=== PATIENT | female | born 1955 | race Caucasian/White ===

== ENCOUNTER 2021-07-07 07:49 | Outpatient (REF) | payer MEDICARE, OTHER, SELFPAY ==
[2021-07-07 11:23] LABS: Appearance Urine CLOUDY; Color Urine YELLOW; Glucose Urine UA NEG (NEG); Leukocyte Esterase Urine NEG (NEG); Nitrite Urine NEG (NEG); Specific Gravity - Urine >= 1.030 (1.005-1.025); Urine Blood 1+ (NEG); Urine Ketones NEG (NEG); Urine Protein NEG (NEG-TRACE)
[2021-07-07 11:24] LABS: Hematocrit 38.7 % (37-47); Hemoglobin 12.8 g/dl (12.0-16.0); Mean Corpuscular HGB Conc 33.1 g/dl (31.0-35.0); Mean Corpuscular Volume 90.6 fL (80-98); Mean Platelet Volume 10.9 fL (9.4-12.3); Platelet Count 220 X10*3/uL (160-400); Red Blood Count 4.27 X10*6/uL (4.20-5.50); Red Cell Distribution Width 13.1 % (11.0-16.0); White Blood Count 1.4 X10*3/uL (4.8-10.8)
[2021-07-07 11:37] LABS: Amorphous Sediment Urine 4+ /LPF; Mucus Urine 2+ /LPF; WBC Urine 0 /HPF (0-4)
[2021-07-07 11:47] LABS: Estimated Average Glucose 105 mg/dL; Hemoglobin A1c % 5.3 %
[2021-07-07 11:55] LABS: Alanine Aminotransferase 10 U/L (0-31); Albumin Level 4.2 g/dL (3.5-5.0); Alkaline Phosphatase 77 U/L (39-117); Anion Gap 9 (12-20); Aspartate Amino Transferase 13 U/L (5-31); Bilirubin Total 0.5 mg/dL (0.0-1.0); Blood Urea Nitrogen 14 mg/dL (9-16); Calcium 9.4 mg/dL (8.4-10.2); Carbon Dioxide 26 mmol/L (22-29); Chloride 110 mmol/L (96-108); Cholesterol 148 mg/dL; Estimated Glomerular Filt Rate > 60; Glucose Fasting 106 mg/dL (60-99); HDL Cholesterol 43 mg/dL; LDL Cholesterol Calculated 88 mg/dl; Potassium 3.9 mmol/L (3.3-5.1); Sodium 141 mmol/L (135-145); Total Protein 7.3 g/dL (6.5-8.0); Triglycerides 85 mg/dL
[2021-07-07 12:00] LABS: TSH reflex Free T4 2.71 uIU/mL (0.32-4.0)
[2021-07-07 12:05] LABS: Creatinine Urine 135.11 mg/dL; Microalbum/Creatinine Ratio Ur 10.3 ug/mg cr
== END 2021-07-07 07:50 | disposition home or self-care (01) ==
LOC: HO.HMGCLDS 07:49
PROVIDERS: PCP Internal Medicine; Visit Provider Internal Medicine
DX: Z00.00 Encounter for general adult medical examination without abnormal findings (principal)
CPT/HCPCS: 36415; 80053; 80061; 81001; 82043; 83036; 84443; 85027

== ENCOUNTER → 2021-10-13 13:32 | Outpatient (BNVA) | payer MEDICARE, OTHER, SELFPAY | PROVIDERS: PCP Internal Medicine; Referring Provider Internal Medicine; Visit Provider Nurse Practitioner Family | DX: Z12.11 Encounter for screening for malignant neoplasm of colon (principal); K57.90 Diverticulosis of intestine, part unspecified, without perforation or abscess without bleeding | CPT/HCPCS: 99202 ==

== ENCOUNTER 2022-07-07 07:29 | Outpatient (REF) | payer MEDICARE, OTHER, SELFPAY ==
[2022-07-07 11:22] LABS: Appearance Urine Turbid; Color Urine Yellow; Glucose Urine UA Negative (Negative); Leukocyte Esterase Urine Negative (Negative); Nitrite Urine Negative (Negative); UMIC TRIGGER UA YES; Urine Blood Trace (Negative); Urine Ketones Negative (Negative); Urine Protein Negative (Neg-Trace)
[2022-07-07 11:35] LABS: Bacteria Urine None Seen (None Seen); Basophils Percent Auto 0.5 % (0-2); Calcium Oxalate Crystals Urine Present; Eosinophils Percent Auto 0.5 % (0-4); Hematocrit 39.6 % (37.0-47.0); Hemoglobin 12.9 g/dl (12.0-16.0); Hyaline Casts Urine 0-2 /LPF (0-2); Lymphocytes Absolute Auto 0.7 X10*3/uL (1.2-4.9); MANUAL DIFF FLAG SCAN; Mean Corpuscular HGB Conc 32.6 g/dl (31.0-35.0); Mean Corpuscular Hemoglobin 29.1 pg (27.0-33.0); Mean Corpuscular Volume 89.2 fL (80.0-98.0); Mean Platelet Volume 10.5 fL (9.4-12.3); Monocytes Absolute Auto 0.3 X10*3/uL (0.1-1.2); Platelet Count 214 X10*3/uL (160-400); RBC Urine 0-2 /HPF (0-2); Red Blood Count 4.44 X10*6/uL (4.20-5.50); Red Cell Distribution Width 13.3 % (11.0-16.0); SCAN SMEAR FLAG 1; Squamous Epithelial Cell Urine 0-2 /HPF (0-2); WBC Urine 0-5 /HPF (0-5)
[2022-07-07 12:07] LABS: SLIDE REVIEW VERIFIED
== END 2022-07-07 07:30 | disposition home or self-care (01) ==
LOC: HO.HMGCLDS 07:29
PROVIDERS: PCP Internal Medicine; Visit Provider Internal Medicine
DX: Z00.00 Encounter for general adult medical examination without abnormal findings (principal); D70.9 Neutropenia, unspecified
CPT/HCPCS: 36415; 81001; 85025

== ENCOUNTER 2022-10-19 09:35 | Outpatient (REF) | payer MEDICARE, OTHER, SELFPAY ==
[2022-10-19 11:23] LABS: Estimated Average Glucose 114 mg/dL; Hemoglobin A1c % 5.6 %
[2022-10-19 11:49] LABS: Alanine Aminotransferase 10 U/L (0-31); Albumin Level 4.1 g/dL (3.5-5.0); Alkaline Phosphatase 82 U/L (39-117); Anion Gap 8 (12-20); Aspartate Amino Transferase 14 U/L (5-31); Bilirubin Total 0.5 mg/dL (0.0-1.0); Blood Urea Nitrogen 13 mg/dL (9-16); Calcium 9.4 mg/dL (8.4-10.2); Carbon Dioxide 29 mmol/L (22-29); Chloride 108 mmol/L (96-108); Estimated Glomerular Filt Rate > 60; Glucose Fasting 102 mg/dL (60-99); Potassium 3.8 mmol/L (3.3-5.1); Sodium 141 mmol/L (135-145); Total Protein 7.4 g/dL (6.5-8.0)
[2022-10-19 12:06] LABS: TSH reflex Free T4 3.03 uIU/mL (0.32-4.0)
== END 2022-10-19 09:36 | disposition home or self-care (01) ==
LOC: HO.HMGCLDS 09:35
PROVIDERS: PCP Internal Medicine; Visit Provider Internal Medicine
DX: Z00.00 Encounter for general adult medical examination without abnormal findings (principal); D70.9 Neutropenia, unspecified; E78.5 Hyperlipidemia, unspecified; R73.9 Hyperglycemia, unspecified
CPT/HCPCS: 36415; 80053; 83036; 84443

== ENCOUNTER 2023-02-12 08:38 | Outpatient (REF) | payer MEDICARE, OTHER, SELFPAY ==
--- NOTE | ~2023-02-12 | MM_ITS ---
EXAMINATION: BONE DENSITOMETRY CLINICAL INDICATION: Menopause. COMPARISON: Baseline BD dated 08/04/2019. TECHNIQUE: Using a [employer] DXA System (software version: 13.1) manufactured by [employer], dual-energy x-ray absorptiometry was performed of the lumbar spine and left hip. The images are of good technical quality. Summary results are attached. FINDINGS: AP SPINE L1-L4: Current: BMD 1.029 g/cm2, Z-score 0.1, T-score -1.3, osteopenia, 1.0% increase from baseline (<5% change is not significant). Baseline: BMD 1.019 g/cm2. LEFT FEMUR, NECK: Current: BMD 0.835 g/cm2, Z-score 0.0, T-score -1.5, osteopenia. Baseline: BMD 0.814 g/cm2. LEFT FEMUR, TOTAL: Current: BMD 0.777 g/cm2, Z-score -0.6, T-score -1.8, osteopenia, 9.3% decrease from baseline (<5% change is not significant). Baseline: BMD 0.857 g/cm2. IDENTIFIED RISK FACTORS: Menopause, history of fracture (adult). HISTORY OF FRACTURE: Elbow. MEDICATIONS: None listed. MM/XR DEXA axial skeleton IMPRESSION: 1. DIAGNOSIS: Osteopenia based on the lowest T-score value of -1.8 in the total femur applying World Health Organization criteria. 2. 10-YEAR FRACTURE RISK PREDICTION, FRAX: Major osteoporotic fracture (clinical spine, forearm, hip or shoulder) 14.9%. Hip fracture 1.8%. 3. Treatment Recommendations: NOF guidelines recommend consideration for treatment in postmenopausal women and men age 50 and older presenting with the following: -A hip or vertebral (clinical or morphometric) fracture. -T-score less than or equal to -2.5 at the femoral neck or spine after appropriate evaluation to exclude secondary causes. -Low bone mass at the hip or spine and a 10-year fracture probability by FRAX of greater than or equal to 3% for hip fracture or greater than or equal to 20% for major osteoporotic fracture based on the [place] adapted WHO algorithm. 4. Other Recommendations: All treatment decisions require clinical judgment and consideration of individual patient factors, including patient preferences, comorbidities, previous drug use, risk factors not captured in the FRAX model (e.g. frailty, falls, vitamin D deficiency, increased bone turnover, interval significant decline in bone density) and possible under or overestimation of fracture risk by FRAX. Additional medical evaluation for secondary cause of low bone mineral density may be appropriate. FUTURE SCAN RECOMMENDATION: People with diagnosed cases of osteoporosis or at high risk for fracture should have regular bone mineral density tests. For patients eligible for Medicare, routine testing is allowed once every 2 years. The testing frequency can be increased to one year for patients who have rapidly progressing disease, those who are receiving or discontinuing medical therapy to restore bone mass, or have additional risk factors.
== END 2023-02-12 08:39 | disposition home or self-care (01) ==
LOC: HO.MAMMO 08:38
PROVIDERS: Visit Provider Internal Medicine
DX: Z13.820 Encounter for screening for osteoporosis (principal); Z78.0 Asymptomatic menopausal state
CPT/HCPCS: 77080

== ENCOUNTER 2023-03-19 07:00 | Outpatient (RCR) | payer MEDICARE, OTHER, SELFPAY ==
--- NOTE | 2023-02-19 09:14 | MHC.PT.EP ---
[facility] [place] Office [place] Office [place] Office [address] He Brewer [address] [phone] F: [phone] F: [phone] F: [phone] F: [phone] Physical Therapy Plan of Care Date of Evaluation: Date of Surgery: Diagnosis: This is a 68 yo female presenting to skilled PT with a script for pain in R knee and hip. Assessment: This is a 68 yo female presenting to skilled PT with a script for pain in R knee. Patient reporting ongoing stiffness and discomfort starting about 4-5 years ago. She went to PT and did HEP for a while which was helping however she stopped and stiffness started to return (the last time she had PT was 2018). She also reports that she has gained weight and this has not been helping with general achiness and stiffness. L hip is the worst, located low back, mostly described as stiff. R knee is worse but has symptoms B and are located at the patella tendons. Stiffness increases after sitting and then transferring and this is occurring daily. She wants to work on reducing stiffness in general. Assessment reveals pain that ranges from 1-3/10. Patient demos decreased BLE gross ROM, strength of gluts, impaired gait pattern and functional mobility with transfers, TTP at B patella tendons and decreased joint mobility at R knee and L hip. She has many areas of joint stiffness and pain but we will be focusing on the LE for a general stretching and functional HEP for her to continue on her own. Based on functional limitations, impaired QOL and pain tolerance patient is a good candidate for skilled PT 2x/wk for 4wks but would like to come in 1x/wk. Frequency and Duration: The patient will be seen 2x/wk for 4wks Short Term Goals: I in HEP in 2 wks Improve ROM by at least 10 degs in 2 wks Demo proper quad set without increase in pain or cues from PT in 2wks Alf Goals: Improve hip MMT by at least 1 grade in 4wks Improve LEFs by at least 10 points in 4wks Demo proper squat and lift techniques without pain in 4wks Report subjective improvement in QOL of 50% in 4wks Treatment Plan: Modalities to reduce pain, spasms and effusion. Manual therapy to restore motion and function. Therapeutic exercise to improve strength and flexibility. Neuromuscular re-education for posture and balance. Therapeutic activities to return to functional activities of daily living. Electronically signed by: Aylin Singh PT Please sign and return to therapist. Thank you for your referral.
--- NOTE | 2023-04-21 13:01 | MHC.PT.DC ---
[facility] [place] Office [place] Office [place] Office [address] He Brewer [address] [phone] F: [phone] F: [phone] F: [phone] F: [phone] Physical Therapy Discharge Report Diagnosis: This is a 68 yo female presenting to skilled PT with a script for pain in R knee and hip. Date of Surgery: Date of Evaluation: 02/19/23 Date of Discharge: 04/21/23 Treatments to Date: 4 Cancellations to Date: 0 No Shows to Date: 0 Discharge Status: Independent with HEP Patient Elected to Stop Discharge Summary: Per last tx note over 30 days ago reporting that she hadn't done HEP this past week and is feeling stiff. Pt tolerated ther-ex well, with difficulty of performing KTC on L, offered pt modification to reduce LLE range and she declined as she doesn't want her knee to hurt later. Pt instructed in TrA activation, pt with some difficulty performing with verbal/tactile cues and demonstration. Introduced seated HS stretch this date which pt responded well to. Patient did not return for further tx, dc'd after 30 days. Electronically signed by: Aylin Singh, PT Please sign and return to therapist. Thank you for your referral.
== END 2023-04-21 13:01 | disposition home or self-care (01) ==
LOC: HO.PTCHIC 07:00
PROVIDERS: PCP Internal Medicine; Visit Provider Internal Medicine
DX: M25.561 Pain in right knee (principal)
CPT/HCPCS: 97110; 97162

== ENCOUNTER 2023-04-22 12:36 | Outpatient (AMB) | payer MEDICARE, OTHER, SELFPAY ==
--- NOTE | 2023-04-22 12:40 | MHC.PC.OV ---
Vital Signs 04/22/23 12:49 Height 5 ft 1 in Weight 163 lb BMI 30.8 BP 120/66 Blood Pressure Location Lt brachial Position Sitting Pulse 65 Pulse Source Pulse Oximeter Pulse Oximetry (%) 96 Oxygen Delivery Method Room Air Intake Visit Reasons: Discuss CT Scan from [facility] Urology Intake Note: pT is here today for a follow up visit on Ct scan results that were ordered by [facility]. Pt states that the CT scan showed nudule on her lung and she would like to see Liquid Flavor Compounder. Pt also states that she has been having pain in her L heel when she is walking. Allergies penicillin V Allergy (Mild, Unverified 04/22/23 12:51) rash Sulfa (Sulfonamide Antibiotics) Allergy (Mild, Verified 04/22/23 12:51) rash sulfacetamide Allergy (Mild, Verified 04/22/23 12:51) unknown Medication List - Last Reconciled 04/22/23 by Evelyn Rubio MD bisacodyl (Dulcolax (bisacodyl)) 10 mg (2 x 5 mg) PO ONCE 1 day lorazepam 0.5 mg PO DAILY PRN polyethylene glycol 3350 (Miralax) 238 grams PO ONCE pravastatin 20 mg PO BEDTIME Tobacco use date assessed: 04/22/23 Dental Screening Dental Screen Date: 04/22/23 Did you have a dental visit in the last 12 months?: Yes Did you have a dental problem in the last 6 months where you did not have access to dental care?: No Was dental information given to patient?: Patient has dentist HPI Discuss CT Scan from [facility] Urology HPI Details Pt presents to discuss the results of the CT of the abdomen which showed 0.9 x 0.6 cm ground-glass nodule in the basal left lower lung. Patient denies tobacco use by used to smoke pot on was young. She complains of left heel pain worse when walking for the last 2 weeks. Patient denies any injury. [facility] Medical History (Updated 04/22/23 @ 13:35 by Evelyn Rubio MD) Annual physical exam Anxiety Atherosclerosis of both carotid arteries Hyperlipidemia Mammogram normal Nephrolithiasis Neutropenia Normal Pap smear Parotitis Surgical History H/O colonoscopy Family History Father Hypertension Mother No problems noted. Social History Housing: House Patient Tobacco Use Status: Never used Tobacco e-Cigarette/Vaping Use: Never Used Current occupational status: employed Cognitive needs: No Hearing needs: No Vision needs: Yes Questionnaire Thrive Questionnaire Date Thrive assessed: 10/19/22 RADHA-7 AMB Questionnaire RADHA-7 Date RADHA - 7 assessed: 10/19/22 Source: Developed by Drs. Michael Figueroa, Holly Azevedo, Jerrod Paul and colleagues, with an educational pascale from [employer]. Review of Systems Const All systems reviewed & are unremarkable except as noted in HPI and below Reports no additional complaints Eyes Reports no additional complaints ENT Reports no additional complaints Card Reports no additional complaints Resp Reports no additional complaints GI Reports no additional complaints Reports no additional complaints Physical exam (Primary Care) Vital Signs: Last Vital Signs Pulse 65 04/22/23 12:49 BP 120/66 04/22/23 12:49 Pulse Ox 96 04/22/23 12:49 Oxygen Delivery Method Room Air 04/22/23 12:49 BMI result Body Mass Index 30.8 Tobacco/Smoking Status: Tobacco use Status Tobacco use date assessed 04/22/23 04/22/23 12:54 Patient Tobacco Use Status Never used Tobacco 04/22/23 12:54 e-Cigarette/Vaping Use Never Used 04/22/23 12:41 Thrive Assessment: Date of Thrive Assessment Date Thrive assessed 10/19/22 04/22/23 12:41 Const General: no acute distress HENMT Ears: hearing grossly normal bilaterally Resp Effort & Inspection: normal respiratory effort Auscultation: clear to auscultation bilaterally Cardio Heart sounds: S1 normal heart sound present and S2 normal heart sound present Extrem Other: Reproducible tenderness at the left heel, no soft tissue swelling General: Yes no clubbing, cyanosis or edema Assessment and Plan Assessment & Plan (1) Pulmonary nodule less than 1 cm in diameter with low risk for malignant neoplasm: Comment: 0.9 x 0.6 cm, ground-glass left lower lobe, 04/25 Code(s): R91.1 - Solitary pulmonary nodule; Z91.89 - Other specified personal risk factors, not elsewhere classified Plan: Obtain CT of the chest to evaluate (2) Plantar fasciitis of left foot: Code(s): M72.2 - Plantar fascial fibromatosis Plan: Patient was given stretching exercises and meloxicam. Supportive care discussed with the patient Orders: Orders CT chest wo con - High Res Today R91.1 - Solitary pulmonary nodule, Z91.89 - Other specified personal risk factors, not elsewhere classified Medications: New meloxicam 15 mg PO DAILY 10 tabs 0RF Coding Level of Care Code Est Pt Level 3 (81005) Diagnoses Pulmonary nodule less than 1 cm in diameter with low risk for malignant neoplasm R91.1; Z91.89 Plantar fasciitis of left foot M72.2
[2023-04-22 12:49] VITALS: BP 120/66; PULSE 65; O2SAT 96; BMI 30.8
== END 2023-04-22 13:36 | disposition home or self-care (01) ==
PROVIDERS: PCP Internal Medicine; Visit Provider Internal Medicine
DX: R91.1 Solitary pulmonary nodule (principal); Z91.89 Other specified personal risk factors, not elsewhere classified; M72.2 Plantar fascial fibromatosis
CPT/HCPCS: 99213

== ENCOUNTER 2023-05-10 10:14 | Day surgery (SDC) | payer MEDICARE, OTHER, SELFPAY ==
[2023-03-11 11:29] VITALS: BMI 31.6
--- NOTE | 2023-05-10 10:23 | HO.ANESPROP2 ---
[facility] Active Problems Active Problems: All Active Problems (Updated 04/22/23 @ 13:35 by Evelyn Rubio MD) Plantar fasciitis of left foot (Acute) Pulmonary nodule less than 1 cm in diameter with low risk for malignant neoplasm (Acute) Postmenopausal (Acute) Right hip pain (Acute) Right knee pain (Acute) Vertigo (Acute) Hyperglycemia (Acute) Upper respiratory tract infection (Acute) Neutropenia (Acute) Hyperlipidemia (Acute) Normal Pap smear (Acute) Mammogram normal (Acute) Annual physical exam (Acute) Nephrolithiasis (Acute) Past Medical History Medical History Annual physical exam Anxiety Atherosclerosis of both carotid arteries Hyperlipidemia Mammogram normal Nephrolithiasis Neutropenia Normal Pap smear Parotitis Family History Family History Father Hypertension Mother No problems noted. Surgical History Surgical History H/O colonoscopy History of Problems with Anesthesia: No Social History Social History Housing: House Patient Tobacco Use Status: Never used Tobacco e-Cigarette/Vaping Use: Never Used Advance Directives: No Advance Directives Information Provided: Yes Current occupational status: employed Cognitive needs: No Hearing needs: No Vision needs: Yes Meds Allergies Allergy/AdvReac Type Severity Reaction Status Date / Time penicillin V Allergy Mild rash Unverified 04/22/23 12:51 Sulfa (Sulfonamide Allergy Mild rash Verified 04/22/23 12:51 Antibiotics) sulfacetamide Allergy Mild unknown Verified 04/22/23 12:51 Active Medications: Current Medications Lactated Ringer's (Lr) 1,000 mls @ 100 mls/hr IVCONT .Q10H ELMA Exam Exam Date and Time: May 10, 2023 1023 Height,Weight and Vital Signs: Height 5 ft 1 in Weight 75.75 kg Airway Mallampati Class: II TM Dist: >3cm Neck ROM: Full Loose/Missing/Broken Teeth: No Heart: RRR Lungs: CTA Assessment and Plan Assessment Anesthesia Assessment: Anesthesia Plan Discussed and Chart Reviewed Final Anesthetic Review History of Problems with Anesthesia: No NPO: Yes ASA Class: II Final Preanesthetic Review: Meds/Allgs Chart Reviewed, Consent Obtained/Reviewed and Anes Risks/Benef Reviewed Patient Risk: Low Procedure Risk: Low Anesthetic Plan Anesthetic Plan: MAC: Disposition: Standard PACU
[2023-05-10 10:46] VITALS: BP 125/72; PULSE 81; RESP 16; TEMP 36.9; O2SAT 95; BMI 29.3
--- NOTE | 2023-05-10 11:07 | P.HPSUR_ITS ---
Pre-Procedural Eval Section A Date of Service: 05/10/23 The patient is an INPATIENT: No The History & Physical has been completed within 30 days and I have reviewed it.: No Section B Chief Complaint: Colon cancer screening Relevant Family History (Specify if Yes): No Relevant Social History: None Present Medications: see Short Stay Collaborative assessment Medical History: Significant History (Anxiety Atherosclerosis of both carotid arteries Hyperlipidemia Mammogram normal Nephrolithiasis Neutropenia Normal Pap smear Parotitis) History of Previous Operations: Relevant previous surgery/procedure and date(s) (History of colonoscopy) Allergies: Allergies Allergy/AdvReac Type Severity Reaction Status Date / Time penicillin V Allergy Mild rash Unverified 04/22/23 12:51 Sulfa (Sulfonamide Allergy Mild rash Verified 04/22/23 12:51 Antibiotics) sulfacetamide Allergy Mild unknown Verified 04/22/23 12:51 Review of Systems Sugical H&P ROS: Negative: Constitution, Cardiovascular, Respiratory and [place] rointestinal Exam Surgical H&P Exam: Normal: Heart, Normal: Lungs, Normal: Extremities and Normal: Abdomen Plan Diagnosis/Plan: Unchanged I have reviewed the history and physical and performed a pertinent physical examination on my patient. No changes have occurred unless specified. Time Spent With Patient Time: Total time managing care of this patient today ____ minutes.
--- NOTE | 2023-05-10 11:15 | P.OP_ITS ---
Operative Note Operative Note Date of Service: 05/10/23 Narrative: COLONOSCOPY TILL CECUM WITH SNARE POLYPECTOMY, SUBMUCOSAL INJECTION AND HEMOCLIP PLACEMENT Pre-op diagnosis: Colon cancer screening (2nd colonoscopy) Post-op diagnosis:? Colon polyps, diverticulosis, hemorrhoids Endoscopist:? Dilip Ruff MD Anesthesia:?MAC Consent: Indications for the procedure and potential complications of bleeding, perforation, reaction to medications and missed diagnosis were discussed with the patient and informed consent was obtained. Instrument: Olympus PCF H 190 L variable stiffness pediatric colonoscope Monitoring: Vital signs and clinical assessment, intermittent blood pressure monitoring, continuous EKG monitoring, Pulse oximetry and Carbon Dioxide monitoring were done throughout the procedure. Patient developed bradycardia during intubation. Please see anesthesia flowsheet. Colon withdrawl time was 21 minutes. Procedure: The patient was placed in the left lateral decubitis position and pre-procedure medications were administered. After a digital rectal examination of the ano-rectum, the video colonoscope was inserted into the rectum and advanced through the colon to the cecum. The colonoscope was slowly withdrawn in a retrograde panoramic fashion and the colon mucosa was carefully examined including a retroflexed view of the rectum. Findings and interventions are described below. Procedure Difficulty: Colon was long and tortuous and there was spasm and recurrent loop formation. LLQ pressure was applied to intubate the cecum Findings: Terminal Ileum: Not evaluated Cecum: A 1.5 to 1.8 cms flat polyp - opposite the ICV. Polyp was raised with 5 cc of normal saline and removed with a hot stiff snare. Polypectomy site was closed with 1 hemoclip and marked with Chelsi ink Ascending Colon: Scattered moderate diverticulosis throughout the entire colon. Transverse Colon: Two 10-15 mm flat polyps - raised with 3-4 cc of normal saline and removed with a hot snare. Scattered moderate diverticulosis throughout the entire colon Descending Colon: Scattered moderate diverticulosis throughout the entire colon (left > right) Sigmoid Colon: Moderate diverticulosis Rectum: Normal Ano-rectum: Moderate internal hemorrhoids Colon preparation: Excellent Impression and Post Procedure Diagnosis: Colonoscopy Findings: Three medium sized polyps removed Moderate diverticulosis seen in the entire colon Moderate hemorrhoids on retroflexed exam. Plan: Await pathology results Patient has an appointment on 05/24/23 in the GI Clinic with Alanis Pastrana FNP- BC. Repeat Colonoscopy interval based on path results - in 3 years if polyps are adenomatous and 10 years if polyps are hyperplastic. Above findings were reviewed with the patient and colon polyps and diverticulosis handouts were given in the discharge area
[2023-05-10 12:15] VITALS: BP 97/42; PULSE 80; RESP 18; TEMP 36.6; O2SAT 95
[2023-05-10 12:34] VITALS: BP 136/78; PULSE 80; RESP 18; TEMP 36.1; O2SAT 99
== END 2023-05-10 13:35 | disposition home or self-care (01) ==
PROVIDERS: PCP Internal Medicine; Visit Provider Internal Medicine Gastroenterology
PROC: 0DJD8ZZ Inspection of Lower Intestinal Tract, Via Natural or Artificial Opening Endoscopic (ICD-10-PCS; CPT 45378; principal; 2023-05-10 11:50)
DX: Z12.11 Encounter for screening for malignant neoplasm of colon (principal); D12.0 Benign neoplasm of cecum; D12.3 Benign neoplasm of transverse colon; K57.30 Diverticulosis of large intestine without perforation or abscess without bleeding; K64.8 Other hemorrhoids; I65.23 Occlusion and stenosis of bilateral carotid arteries; E78.5 Hyperlipidemia, unspecified; D70.9 Neutropenia, unspecified; N20.0 Calculus of kidney; K11.20 Sialoadenitis, unspecified; Z79.899 Other long term (current) drug therapy; Z88.0 Allergy status to penicillin; Z88.2 Allergy status to sulfonamides
CPT/HCPCS: 45385; 45381; 88305; J2405

== ENCOUNTER → 2023-05-10 10:14 | Outpatient (BNV) | payer MEDICARE, OTHER, SELFPAY | PROVIDERS: PCP Internal Medicine; Visit Provider Internal Medicine Gastroenterology | DX: Z12.11 Encounter for screening for malignant neoplasm of colon (principal); K57.30 Diverticulosis of large intestine without perforation or abscess without bleeding; K64.8 Other hemorrhoids; D12.0 Benign neoplasm of cecum; D12.3 Benign neoplasm of transverse colon | CPT/HCPCS: 45381; 45385 ==

== ENCOUNTER 2023-05-12 07:42 | Outpatient (REF) | payer MEDICARE, OTHER, SELFPAY ==
--- NOTE | ~2023-05-12 | CT_ITS ---
EXAMINATION: CT CHEST WITHOUT CONTRAST CLINICAL INFORMATION: Other specified personal risk factors not elsewhere classified COMPARISON: None available. TECHNIQUE: Multidetector volumetric CT imaging of the chest was done. Axial MIP volume rendering provided. Sagittal and coronal reformatted images were obtained. This CT examination was performed using dose optimization techniques as appropriate, variously including the following: *Automated exposure control *Adjustment of mA and/or kV according to patient size (this includes techniques or standardized protocols for targeted exams where dose is matched to indication/reason for exam; i.e. extremities or head) *Use of iterative reconstruction technique DLP: 139 mGy-cm FINDINGS: LUNGS/PLEURA: Emphysematous changes. Peripheral reticular nodular opacities. Mild bronchial thickening. Multi focal groundglass foci are noted in the bilateral lung stringer may reflect atelectasis versus evolving infectious/inflammatory etiology for example in the anterolateral aspect of the right lower lobe (series 5, image 256). 4 mm nodular focus along the superolateral aspect of the lingula (series 5, image 267). Central airways are patent. No pneumothorax. No large pleural effusion. MEDIASTINUM: Heart is not enlarged. No pericardial effusion. Coronary artery calcifications are noted. Aorta is nonaneurysmal and demonstrates atherosclerotic calcifications. Main pulmonary artery is not enlarged. A few mildly prominent though nonenlarged peritracheal, precarinal and periaortic lymph nodes are demonstrated. Visualized portions of the thyroid are unremarkable. AXILLA: No lymphadenopathy. UPPER ABDOMEN: Small hiatal hernia. 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 Radiopaque material noted along the proximal transverse colon, nonspecific. OSSEOUS STRUCTURES: Multilevel degenerative changes of the thoracolumbar and lumbosacral spine. Degenerative arthropathy of the right glenohumeral joint. CT/CT chest wo IV con IMPRESSION: 1. Emphysematous changes. Peripheral reticular nodular opacities. Mild bronchial thickening. Multi focal groundglass foci are noted in the bilateral lung stringer may reflect atelectasis versus evolving infectious/inflammatory etiology for example in the anterolateral aspect of the right lower lobe. 2. 4 mm nodular focus along the superolateral aspect of the lingula. Follow-up as per Fleischner criteria. 3. Small hiatal hernia. 4. 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 5. Radiopaque material noted along the proximal transverse colon, nonspecific. Various management parameters for solitary pulmonary nodules are in the literature. According to the Fleischner Society, recommendations for pulmonary nodules are as follows: According to the UPDATED 2017 Fleischner Society recommendations, the advised follow-up imaging for solid nodules < 6 mm is: LOW RISK PATIENT: No routine follow-up. HIGH RISK PATIENT: Optional CT at 12 months.
== END 2023-05-12 07:43 | disposition home or self-care (01) ==
LOC: HO.CT 07:42
PROVIDERS: Visit Provider Internal Medicine
DX: R91.1 Solitary pulmonary nodule (principal); Z91.89 Other specified personal risk factors, not elsewhere classified
CPT/HCPCS: 71250

== ENCOUNTER 2023-06-09 10:19 | Outpatient (AMB) | payer MEDICARE, OTHER, SELFPAY ==
[2023-06-09 10:23] VITALS: BP 124/72; PULSE 75; O2SAT 95; BMI 31.0
--- NOTE | 2023-06-09 10:23 | MHC.PC.OV ---
Vital Signs 06/09/23 10:23 Height 5 ft 1 in Weight 164 lb BMI 31.0 BP 124/72 Blood Pressure Location Lt brachial Position Sitting Pulse 75 Pulse Source Pulse Oximeter Pulse Oximetry (%) 95 Oxygen Delivery Method Room Air Intake Visit Reasons: CAT-Scan F/U Intake Note: Pt is here today for a follow up visit on Ct scan. Allergies penicillin V Allergy (Mild, Unverified 06/09/23 10:27) rash Sulfa (Sulfonamide Antibiotics) Allergy (Mild, Verified 06/09/23 10:27) rash sulfacetamide Allergy (Mild, Verified 06/09/23 10:27) unknown Medication List - Last Reconciled 06/09/23 by Evelyn Rubio MD cholecalciferol (vitamin D3) 50 mcg PO DAILY lorazepam 0.5 mg PO DAILY PRN pravastatin 20 mg PO BEDTIME Tobacco use date assessed: 04/22/23 HPI CAT-Scan F/U HPI Details Pt presents to discuss chest CT report. It was consistent with emphysema, peripheral reticulonodular opacities multifocal, ground-glass foci, question atelectases versus inflammatory etiology. Pt denies cough, wheezing, fever chills night sweats weight loss PND, orthopnea. She reports KEATING when walking up the stairs not significantly changed for the last few years. Patient was never a smoker but had secondhand tobacco exposure for years while working. [facility] Medical History (Updated 06/09/23 @ 10:51 by Evelyn Rubio MD) Annual physical exam Anxiety Atherosclerosis of both carotid arteries Hyperlipidemia Mammogram normal Nephrolithiasis Neutropenia Normal Pap smear Parotitis Surgical History H/O colonoscopy Family History Father Hypertension Mother No problems noted. Social History Housing: House Patient Tobacco Use Status: Never used Tobacco e-Cigarette/Vaping Use: Never Used Current occupational status: employed Cognitive needs: No Hearing needs: No Vision needs: Yes Questionnaire Thrive Questionnaire Date Thrive assessed: 10/19/22 RADHA-7 AMB Questionnaire RADHA-7 Date RADHA - 7 assessed: 10/19/22 Source: Developed by Holly Brooke B.W. Roberto Carlos, Jerrod Paul and colleagues, with an educational pascale from [employer]. Review of Systems Const All systems reviewed & are unremarkable except as noted in HPI and below Reports no additional complaints Eyes Reports no additional complaints ENT Reports no additional complaints Card Reports no additional complaints Resp Reports no additional complaints GI Reports no additional complaints Reports no additional complaints Physical exam (Primary Care) Vital Signs: Last Vital Signs Pulse 75 06/09/23 10:23 BP 124/72 06/09/23 10:23 Pulse Ox 95 06/09/23 10:23 Oxygen Delivery Method Room Air 06/09/23 10:23 BMI result Body Mass Index 31.0 Tobacco/Smoking Status: Tobacco use Status Tobacco use date assessed 04/22/23 06/09/23 10:25 Patient Tobacco Use Status Never used Tobacco 06/09/23 10:25 e-Cigarette/Vaping Use Never Used 06/09/23 10:25 Thrive Assessment: Date of Thrive Assessment Date Thrive assessed 10/19/22 06/09/23 10:25 Const General: no acute distress HENMT Head: Yes normal to inspection Ears: hearing grossly normal bilaterally Face and sinus: Yes normal facial exam Throat: Yes posterior oropharynx normal Neck Neck: Yes supple Resp Effort & Inspection: normal respiratory effort Auscultation: diminished lung sounds Cardio Rhythm: regular rhythm Heart sounds: S1 normal heart sound present and S2 normal heart sound present GI Inspection: Yes normal to inspection Palpation (GI): Soft to palpation Percussion: Yes normal to percussion Auscultation: normal bowel sounds Assessment and Plan Assessment & Plan (1) Emphysema lung: Code(s): J43.9 - Emphysema, unspecified Plan: Obtain PFTs and refer to [facility] stitcher. Orders: Orders PFT pulmonary function test Today J43.9 - Emphysema, unspecified Referrals Pulmonary Medicine Referral J43.9 - Emphysema, unspecified Coding Level of Care Code Est Pt Level 3 (73075) Diagnoses Emphysema lung J43.9
== END 2023-06-09 12:38 | disposition home or self-care (01) ==
PROVIDERS: PCP Internal Medicine; Visit Provider Internal Medicine
DX: J43.9 Emphysema, unspecified (principal)
CPT/HCPCS: 99213

== ENCOUNTER 2023-06-15 07:33 | Outpatient (REF) | payer MEDICARE, OTHER, SELFPAY ==
--- NOTE | 2023-06-15 08:25 | PFT_ITS ---
INDICATION: Emphysema. SPIROMETRY: FEV1 to FVC of 85% with an FEV1 of 2.6 L, which is 135% predicted. FVC of 3.05 L, which is 120% predicted. No significant response to bronchodilators noted. Maximum voluntary ventilation 119% predicted. LUNG VOLUMES: Total lung capacity 122% predicted with a residual volume of 113% predicted. Expiratory reserve volume of 57% predicted. DIFFUSION CAPACITY: DLCO 114% predicted. INTERPRETATION: No obstructive nor restrictive ventilatory defects identified. No significant response to bronchodilators noted. Normal maximum voluntary ventilation. The patient does have a trend of hyperinflation. Diffusion capacity is within normal limits. Clinical correlation warranted. MD BETY Campoverde/LAUREN / [phone]
== END 2023-06-15 07:34 | disposition home or self-care (01) ==
LOC: HO.RESP 07:33
PROVIDERS: PCP Internal Medicine; Visit Provider Internal Medicine
DX: J43.9 Emphysema, unspecified (principal)
CPT/HCPCS: 94010; 94727; 94729

== ENCOUNTER → 2023-06-15 08:25 | Outpatient (BNV) | payer MEDICARE, OTHER, SELFPAY | PROVIDERS: PCP Internal Medicine; Visit Provider Hospitalist | DX: J43.9 Emphysema, unspecified (principal) | CPT/HCPCS: 94060; 94727; 94729 ==

== ENCOUNTER 2023-08-03 09:34 | Outpatient (AMB) | payer MEDICARE, OTHER, SELFPAY ==
--- NOTE | 2023-08-03 09:37 | MHC.OFFVIS ---
Intake Vital Signs 08/03/23 09:38 Height 5 ft 1 in Weight 163 lb 5.547 oz BMI 30.9 BP 142/65 H Blood Pressure Location Lt brachial Position Sitting Pulse 74 Intake Visit Reasons: S/P colon-Speedy Intake Note: Hilary presents in the office as a follow up colonoscopy. CC: She states that she is not having any concerns but it said that she should go every 3 years which is a little different than what she has heard in the past so she is a little concerned of that. Allergies penicillin V Allergy (Mild, Unverified 08/03/23 09:39) rash Sulfa (Sulfonamide Antibiotics) Allergy (Mild, Verified 08/03/23 09:39) rash sulfacetamide Allergy (Mild, Verified 08/03/23 09:39) unknown HPI S/P colon-Speedy HPI Details LAST VISIT Screen for colon cancer Patient denies any GI, cardiac or respiratory symptoms.? Denies any issues with anesthesia in the past.? Denies any history of sleep apnea.? Patient does admit to snoring at night when sleeping. Colonoscopy around 7 years ago unsure if polyps were found, however patient reports that she was told that she has diverticulosis. No history infectious diseases in the past or present.? Not on any anticoagulation therapy.? ? Patient denies melena, hematochezia, unintentional weight loss or ribbon like stools.? Discussed at length the pre-procedure,? prep, diet & medications as well as what to expect prior, during and after the procedure.?? Stressed the importance of good bowel prep. ?Recommended the use of Vaseline or Calmoseptine OTC & baby wipes with bowel movements to promote comfort.? ?Patient verbalizes understanding and agrees to plan of care.? She was given the opportunity to ask questions and all questions answered.? We will see her after the procedure.? Diverticulosis History of diverticulosis. High-fiber diet discussed with patient. Patient denies any abdominal pain or discomfort. Moving her bowels normally however not always empty her bowels completely. Will start her on docusate sodium Plan Medications New bisacodyl (Dulcolax (bisacodyl)) take 2 tabs at noon the day before your colonoscopy 10 mg (2 x 5 mg) PO ONCE 1 day 2 tabs 0RF Z12.11 docusate sodium 100 mg PO BEDTIME 30 caps 1RF K59.00 polyethylene glycol 3350 (Miralax) As directed by gastroenterology department at [facility] 238 grams PO ONCE 238 grams 0RF Z12.11 COLONOSCOPY Findings: Terminal Ileum: Not evaluated Cecum: A 1.5 to 1.8 cms flat polyp - opposite the ICV. Polyp was raised with 5 cc of normal saline and removed with a hot stiff snare. Polypectomy site was closed with 1 hemoclip and marked with Chelsi ink Ascending Colon: Scattered moderate diverticulosis throughout the entire colon. Transverse Colon: Two 10-15 mm flat polyps - raised with 3-4 cc of normal saline and removed with a hot snare. Scattered moderate diverticulosis throughout the entire colon Descending Colon: Scattered moderate diverticulosis throughout the entire colon (left > right) Sigmoid Colon: Moderate diverticulosis Rectum: Normal Ano-rectum: Moderate internal hemorrhoids Colon preparation: Excellent Impression and Post Procedure Diagnosis: Colonoscopy Findings: Three medium sized polyps removed Moderate diverticulosis seen in the entire colon Moderate hemorrhoids on retroflexed exam. Plan: Repeat Colonoscopy interval based on path results - in 3 years if polyps are adenomatous and 10 years if polyps are hyperplastic. PATHOLOGY RESULTS Diagnosis A. Colon, transverse, polyp: Tubular adenoma; negative for high-grade dysplasia or carcinoma. B. Colon, cecal polyp: Sessile serrated lesion/polyp with out dysplasia TODAY'S VISIT: Patient is here today for follow-up and to discuss colonoscopy results. Patient denies any ill effects from the prep, anesthesia or procedure itself. Patient reports that she has been feeling well. Moving her bowels without any issues. Denies any melena, hematochezia, unintentional weight loss or ribbon like stools. Patient had 2 polyps 1 showed tubular adenoma in the transverse colon without high-grade dysplasia or carcinoma. Cecal polyp was sessile serrated polyp without any dysplasia. Patient will need to repeat colonoscopy in 3 years. Moderate diverticulosis seen in the left side of her colon as well as moderate hemorrhoids. Patient reports that she eats lots of vegetables. She tries to eat high-fiber diet. Patient denies any rectal pain or discomfort. Denies any GI concerning symptoms today. [facility] Medical History (Updated 08/03/23 @ 09:44 by Alanis Pastrana [facility]) Diverticulosis Tubular adenoma Hyperlipidemia Normal Pap smear Mammogram normal Annual physical exam Nephrolithiasis Atherosclerosis of both carotid arteries Parotitis Anxiety Neutropenia Surgical History H/O colonoscopy Family History Father Hypertension Mother No problems noted. Social History Housing: House Patient Tobacco Use Status: Never used Tobacco e-Cigarette/Vaping Use: Never Used Current occupational status: employed Cognitive needs: No Hearing needs: No Vision needs: Yes Review of Systems Const Denies weight gain and Denies weight loss ENT Reports no additional complaints, Denies dysphagia and Denies odynophagia Card Reports no additional complaints Resp Reports no additional complaints GI Denies abdominal pain, Denies belching, Denies melena, Denies bloating, Denies change in bowel habits, Denies dysphagia, Denies excessive flatus, Denies dyspepsia, Denies heartburn, Denies diarrhea, Denies loose stools, Denies nausea, Denies odynophagia and Denies vomiting Musc Reports no additional complaints Neuro Reports no additional complaints Psych Reports no additional complaints Endo Reports no additional complaints Physical Exam Vital Signs: Last Vital Signs Pulse 74 08/03/23 09:38 BP 142/65 H 08/03/23 09:38 BMI result Body Mass Index 30.9 Const General: healthy appearing, no acute distress and well developed Nutritional Appearance: obese Orientation/consciousness: patient oriented x3 HEENT Head: Yes normal to inspection, Yes normocephalic and Yes atraumatic Face and sinus: Yes normal facial exam Mouth: Normal oral and palatal mucosa present Throat: Yes posterior oropharynx normal, Yes tonsils normal and Yes uvula midline Eyes General: appearance normal, both eyes and all related structures Neck Neck: Yes normal visual inspection, Yes full ROM and Yes trachea midline Thyroid: Thyroid normal Resp Effort & Inspection: normal respiratory effort, able to speak in complete sentences, no tracheal deviation and symmetric chest movement Auscultation: clear to auscultation bilaterally Cardio Rate: regular rate Heart sounds: S1 normal heart sound present and S2 normal heart sound present GI Inspection: Yes normal to inspection, No distended and Yes obesity Palpation (GI): Soft to palpation, not firm, nontender and No hepatosplenomegaly present Auscultation: normal bowel sounds General: Yes no CVA tenderness Back/Spine/Pelvis Back: no CVA tenderness Skin General skin exam: elasticity normal, turgor normal and dry skin Neuro General: patient oriented x3 Psych Appearance: grossly normal Mental Status: mental status grossly normal Assessment & Plan Assessment & Plan (1) Tubular adenoma: Code(s): D36.9 - Benign neoplasm, unspecified site (2) Status post colonoscopy: Code(s): Z98.890 - Other specified postprocedural states (3) Diverticulosis: Code(s): K57.90 - Diverticulosis of intestine, part unspecified, without perforation or abscess without bleeding (4) Internal hemorrhoids without complication: Code(s): K64.8 - Other hemorrhoids Plan As mentioned above in HPI tubular adenoma, sessile serrated polyp, moderate diverticulosis of left colon and moderate internal hemorrhoids found on colonoscopy. Patient denies any GI concerning symptoms. Long discussion with patient about the results, diet recommendations made. High-fiber diet discussed with patient. Recommendation made to start probiotics. Sitz baths as needed. Colorectal screening in 3 years, sooner if clinically necessary. Patient will follow-up in our office on as needed basis. She is agreeable to this plan and verbalizes understanding of instructions. She was given the opportunity to ask questions and all questions answered. Thank you for allowing me to participate in her care Coding Level of Care Code Est Pt Level 3 (46329) Diagnoses Tubular adenoma D36.9 Status post colonoscopy Z98.890 Diverticulosis K57.90 Internal hemorrhoids without complication K64.8 Time Spent (min) 30 Comment 20 minutes spent with patient and additional 10 minutes spent reviewing her records
[2023-08-03 09:38] VITALS: BP 142/65; PULSE 74; BMI 30.9
== END 2023-08-03 10:53 | disposition home or self-care (01) ==
PROVIDERS: PCP Internal Medicine; Visit Provider Nurse Practitioner Family
DX: D36.9 Benign neoplasm, unspecified site (principal); Z98.890 Other specified postprocedural states; K57.90 Diverticulosis of intestine, part unspecified, without perforation or abscess without bleeding; K64.8 Other hemorrhoids
CPT/HCPCS: 99213

== ENCOUNTER → 2023-08-03 09:34 | Outpatient (BNVA) | payer MEDICARE, OTHER, SELFPAY | PROVIDERS: PCP Internal Medicine; Visit Provider Nurse Practitioner Family | DX: K57.90 Diverticulosis of intestine, part unspecified, without perforation or abscess without bleeding (principal); K64.8 Other hemorrhoids; D36.9 Benign neoplasm, unspecified site; Z98.890 Other specified postprocedural states | CPT/HCPCS: 99212 ==

== ENCOUNTER 2023-09-02 10:15 | Outpatient (AMB) | payer MEDICARE, OTHER, SELFPAY ==
--- NOTE | 2023-09-02 10:16 | MHC.OFFVIS ---
Intake Vital Signs 09/02/23 10:17 Height 5 ft 1 in Weight 168 lb 10.458 oz BMI 31.9 BP 122/64 Blood Pressure Location Lt brachial Position Sitting Pulse 90 Pulse Source Doppler Pulse Oximetry (%) 98 Oxygen Delivery Method Room Air Intake Visit Reasons: emphesyma Allergies penicillin V Allergy (Mild, Verified 09/02/23 10:19) rash Sulfa (Sulfonamide Antibiotics) Allergy (Mild, Verified 09/02/23 10:19) rash sulfacetamide Allergy (Mild, Verified 09/02/23 10:19) unknown HPI emphesyma HPI Details 68-year-old lady, minimal smoker of tobacco products, smoked Luz Maria for approximately 7 year, and had significant exposure to secondhand smoke referred for evaluation of CT chest that demonstrated 4 mm nodule and mild emphysema. Patient did have a normal pulmonary function test. She denies any pulmonary related concerns or complaints. She does have a history of thymus irradiation as a baby. She denies personal or family history of lung disease. [facility] Medical History (Updated 08/03/23 @ 09:44 by Alanis Pastrana [facility]) Diverticulosis Tubular adenoma Hyperlipidemia Normal Pap smear Mammogram normal Annual physical exam Nephrolithiasis Atherosclerosis of both carotid arteries Parotitis Anxiety Neutropenia Surgical History H/O colonoscopy Family History Father Hypertension Mother No problems noted. Social History Housing: House Patient Tobacco Use Status: Never used Tobacco e-Cigarette/Vaping Use: Never Used Current occupational status: employed Cognitive needs: No Hearing needs: No Vision needs: Yes Physical Exam Vital Signs: Last Vital Signs Pulse 90 09/02/23 10:17 BP 122/64 09/02/23 10:17 Pulse Ox 98 09/02/23 10:17 Oxygen Delivery Method Room Air 09/02/23 10:17 BMI result Body Mass Index 31.9 Const General: no acute distress, alert and awake Eyes Sclerae: sclerae normal EOM: EOMs intact bilaterally Neck Neck: Yes no lymphadenopathy, Yes trachea midline and Yes supple Resp Effort & Inspection: normal respiratory effort and no respiratory distress Auscultation: clear to auscultation bilaterally Cardio Rate: regular rate Rhythm: regular rhythm Heart sounds: no gallops, no murmurs and no rubs GI Palpation (GI): Soft to palpation and Other GI palpation findings present ( Nontender) Auscultation: normal bowel sounds Extrem General: Yes no pedal edema, No clubbing and No cyanosis Assessment & Plan Assessment & Plan (1) Pulmonary nodule less than 1 cm in diameter with low risk for malignant neoplasm: Comment: 0.9 x 0.6 cm, ground-glass left lower lobe, 04/25 Code(s): R91.1 - Solitary pulmonary nodule; Z91.89 - Other specified personal risk factors, not elsewhere classified Plan: Will repeat CT chest in April of 2023. (2) Emphysema lung: Code(s): J43.9 - Emphysema, unspecified Plan: At this time essentially asymptomatic. Continue to monitor clinically. Orders: Orders CT chest wo IV con 05/02/24 R91.1 - Solitary pulmonary nodule, Z91.89 - Other specified personal risk factors, not elsewhere classified Coding Level of Care Code New Pt Level 4 (56040) Diagnoses Pulmonary nodule less than 1 cm in diameter with low risk for malignant neoplasm R91.1; Z91.89 Emphysema lung J43.9
[2023-09-02 10:17] VITALS: BP 122/64; PULSE 90; O2SAT 98; BMI 31.9
== END 2023-09-02 10:37 | disposition home or self-care (01) ==
LOC: HO.HPS 10:15
PROVIDERS: PCP Internal Medicine; Referring Provider Internal Medicine; Visit Provider Internal Medicine Pulmonary Disease
DX: R91.1 Solitary pulmonary nodule (principal); Z91.89 Other specified personal risk factors, not elsewhere classified; J43.9 Emphysema, unspecified
CPT/HCPCS: 99204

== ENCOUNTER → 2023-09-02 10:15 | Outpatient (BNVA) | payer MEDICARE, OTHER, SELFPAY | PROVIDERS: PCP Internal Medicine; Referring Provider Internal Medicine; Visit Provider Internal Medicine Pulmonary Disease | DX: J43.9 Emphysema, unspecified (principal); R91.1 Solitary pulmonary nodule; Z91.89 Other specified personal risk factors, not elsewhere classified | CPT/HCPCS: 99202 ==

== ENCOUNTER 2024-01-29 09:16 | Outpatient (REF) | payer MEDICARE, OTHER, SELFPAY ==
[2024-01-29 11:33] LABS: MANUAL DIFF FLAG NO
[2024-01-29 11:49] LABS: Basophils Percent Auto 0.6 % (0-2); Hematocrit 40.2 % (37.0-47.0); Hemoglobin 13.4 g/dl (12.0-16.0); Lymphocytes Absolute Auto 0.6 X10*3/uL (1.2-4.9); Lymphocytes Percent Auto 30.6 % (20-40); Mean Corpuscular HGB Conc 33.3 g/dl (31.0-35.0); Mean Corpuscular Hemoglobin 29.9 pg (27.0-33.0); Mean Corpuscular Volume 89.7 fL (80.0-98.0); Mean Platelet Volume 9.6 fL (9.4-12.3); Monocytes Absolute Auto 0.2 X10*3/uL (0.1-1.2); Monocytes Percent Auto 12.2 % (2-11); Neutrophils Percent Auto 56.6 % (45-73); Platelet Count 233 X10*3/uL (160-400); Red Blood Count 4.48 X10*6/uL (4.20-5.50); Red Cell Distribution Width 13.3 % (11.0-16.0); SCAN SMEAR FLAG 1
[2024-01-29 11:58] LABS: White Blood Count 1.8 X10*3/uL (4.8-10.8)
[2024-01-29 12:03] LABS: Estimated Average Glucose 117 mg/dL; Hemoglobin A1c % 5.7 % (<6.0)
[2024-01-29 12:04] LABS: Creatinine Urine 145.36 mg/dL; Microalbum/Creatinine Ratio Ur 24.7 ug/mg cr (<30)
[2024-01-29 12:06] LABS: Alanine Aminotransferase 19 U/L (0-31); Alkaline Phosphatase 81 U/L (39-117); Anion Gap 10 (12-20); Aspartate Amino Transferase 19 U/L (5-31); Bilirubin Total 0.4 mg/dL (0.0-1.0); Blood Urea Nitrogen 14 mg/dL (9-16); Calcium 9.5 mg/dL (8.4-10.2); Carbon Dioxide 26 mmol/L (22-29); Chloride 110 mmol/L (96-108); Cholesterol 154 mg/dL (<200); Estimated Glomerular Filt Rate > 60; Glucose Fasting 103 mg/dL (60-99); HDL Cholesterol 47 mg/dL (>40); LDL Cholesterol Calculated 78 mg/dL (<100); Potassium 4.2 mmol/L (3.3-5.1); Sodium 142 mmol/L (135-145); Total Protein 7.6 g/dL (6.5-8.0); Triglycerides 148 mg/dL (<150)
[2024-01-29 12:30] LABS: Vitamin D 25-OH Total 38.8 ng/mL (>30)
== END 2024-01-29 09:17 | disposition home or self-care (01) ==
LOC: HO.HMGCLDS 09:16
PROVIDERS: PCP Internal Medicine; Visit Provider Internal Medicine
DX: Z00.00 Encounter for general adult medical examination without abnormal findings (principal); D70.9 Neutropenia, unspecified; E78.5 Hyperlipidemia, unspecified
CPT/HCPCS: 36415; 80053; 80061; 82043; 82306; 82570; 83036; 85025

== ENCOUNTER 2024-01-31 12:59 | Outpatient (AMB) | payer MEDICARE, OTHER, SELFPAY ==
[2024-01-31 13:27] VITALS: BP 120/78; PULSE 78; TEMP 34.4; BMI 32.3
--- NOTE | 2024-01-31 13:27 | A.OFFPC_ITS ---
Vital Signs 01/31/24 13:27 Height 5 ft 1 in Weight 171 lb BMI 32.3 BP 120/78 Blood Pressure Location Lt brachial Position Sitting Pulse 78 Pulse Source Pulse Oximeter Temp 94 F L Temp Source Oral Intake Visit Reasons: PE Allergies penicillin V Allergy (Mild, Verified 01/31/24 13:28) rash Sulfa (Sulfonamide Antibiotics) Allergy (Mild, Verified 01/31/24 13:28) rash sulfacetamide Allergy (Mild, Verified 01/31/24 13:28) unknown Medication List - Last Reconciled 01/31/24 by Evelyn Rubio MD cholecalciferol (vitamin D3) 100 mcg PO DAILY lorazepam 0.5 mg PO DAILY PRN pravastatin 20 mg PO BEDTIME Tobacco use date assessed: 05/05/23 Fall risk assessment: No Falls in past year Last assessed Fall Risk: 01/31/24 Dental Screening Dental Screen Date: 01/31/24 Did you have a dental visit in the last 12 months?: Yes Did you have a dental problem in the last 6 months where you did not have access to dental care?: No Was dental information given to patient?: Patient has dentist HPI PE HPI Details Pt presents for PE. PFSH Medical History (Updated 01/31/24 @ 14:05 by Evelyn Rubio MD) Diverticulosis Tubular adenoma Hyperlipidemia Normal Pap smear Mammogram normal Annual physical exam Nephrolithiasis Atherosclerosis of both carotid arteries Parotitis Anxiety Neutropenia Surgical History H/O colonoscopy Family History Father Hypertension Mother No problems noted. Social History Housing: House Patient Tobacco Use Status: Never used Tobacco e-Cigarette/Vaping Use: Never Used Current occupational status: employed Cognitive needs: No Hearing needs: No Vision needs: Yes Questionnaire Thrive Questionnaire Date Thrive assessed: 10/19/22 RADHA-7 AMB Questionnaire RADHA-7 Date RADHA - 7 assessed: 10/19/22 Source: Developed by Drs. Michael Figueroa, Holly Azevedo, Jerrod Paul and colleagues, with an educational pascale from [employer]. Review of Systems Const All systems reviewed & are unremarkable except as noted in HPI and below Reports no additional complaints Eyes Reports no additional complaints ENT Reports no additional complaints Card Reports no additional complaints Resp Reports no additional complaints GI Reports no additional complaints Reports no additional complaints Physical exam (Primary Care) Vital Signs: Last Vital Signs Temp 94 F L 01/31/24 13:27 Pulse 78 01/31/24 13:27 BP 152/90 H 01/31/24 13:27 BMI result Body Mass Index 32.3 Tobacco/Smoking Status: Tobacco use Status Tobacco use date assessed 05/05/23 01/31/24 13:30 Patient Tobacco Use Status Never used Tobacco 01/31/24 13:30 e-Cigarette/Vaping Use Never Used 01/31/24 13:30 Thrive Assessment: Date of Thrive Assessment Date Thrive assessed 10/19/22 01/31/24 13:30 Const General: no acute distress HENMT Head: Yes normal to inspection Face and sinus: Yes normal facial exam Throat: Yes posterior oropharynx normal Eyes General: appearance normal, both eyes and all related structures Neck Neck: Yes no lymphadenopathy and Yes supple Resp Effort & Inspection: normal respiratory effort Auscultation: clear to auscultation bilaterally Cardio Rhythm: regular rhythm Heart sounds: S1 normal heart sound present and S2 normal heart sound present GI Inspection: Yes normal to inspection Palpation (GI): Soft to palpation Percussion: Yes normal to percussion Auscultation: normal bowel sounds Assessment and Plan Assessment & Plan (1) Neutropenia: Comment: MONITOR WBC stable for >5 yrs Code(s): D70.9 - Neutropenia, unspecified Plan: Monitor CBC (2) Annual physical exam: Code(s): Z00.00 - Encounter for general adult medical examination without abnormal findings Plan: Well-balanced diet regular physical activity weight loss discussed with the patient. 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 Panel Fast 1 Year E78.5 - Hyperlipidemia, unspecified, Z00.00 - Encounter for general adult medical examination without abnormal findings Hemoglobin A1c 1 Year E78.5 - Hyperlipidemia, unspecified, Z00.00 - Encounter for general adult medical examination without abnormal findings Lipid Panel 1 Year E78.5 - Hyperlipidemia, unspecified, Z00.00 - Encounter for general adult medical examination without abnormal findings Complete Blood Count Auto Diff 1 Year E78.5 - Hyperlipidemia, unspecified, Z00.00 - Encounter for general adult medical examination without abnormal findings Vitamin D 25-OH Total 1 Year E78.5 - Hyperlipidemia, unspecified, Z00.00 - Encounter for general adult medical examination without abnormal findings Coding Level of Care Code Est Pt Prev Care >65y(25431) Diagnoses Neutropenia D70.9 Annual physical exam Z00.00 Hyperlipidemia E78.5 Emphysema lung J43.9
== END 2024-01-31 14:00 | disposition home or self-care (01) ==
PROVIDERS: Visit Provider Internal Medicine
DX: Z00.00 Encounter for general adult medical examination without abnormal findings (principal); D70.9 Neutropenia, unspecified; J43.9 Emphysema, unspecified; E78.5 Hyperlipidemia, unspecified
CPT/HCPCS: 99397

== ENCOUNTER 2024-05-02 07:33 | Outpatient (REF) | payer MEDICARE, OTHER, SELFPAY ==
--- NOTE | ~2024-05-02 | CT_ITS ---
EXAMINATION: CT CHEST WITHOUT CONTRAST CLINICAL INFORMATION: Solitary pulmonary nodule COMPARISON: May 12, 2023 TECHNIQUE: Multidetector volumetric CT imaging of the chest was done. Axial MIP volume rendering provided. Sagittal and coronal reformatted images were obtained. This CT examination was performed using dose optimization techniques as appropriate, variously including the following: *Automated exposure control *Adjustment of mA and/or kV according to patient size (this includes techniques or standardized protocols for targeted exams where dose is matched to indication/reason for exam; i.e. 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 There is groundglass opacity in the left lower lobe medially, most likely pneumonia pneumonitis. There is 0.2 cm nodule in the left lower lobe adjacent to the small bulla. The rest of lungs clear there is calcified granuloma in the right lower lobe, image 308. There are changes of centrilobular emphysema. Central airways are patent. MEDIASTINUM: The mediastinum is normal. CORONARY ARTERY CALCIFICATION: None visualized on this study. PLEURA: There is no pleural effusion. No pleural mass or thickening. AXILLA: No lymphadenopathy. UPPER ABDOMEN: Unremarkable. OSSEOUS STRUCTURES: Unremarkable. CT/CT chest wo IV con IMPRESSION: 1. Right lower lobe 0.7 cm mixed attenuation nodule surrounded by groundglass opacity, new. 2. Left lower lobe pneumonia/ pneumonitis. 3. 0.2 cm nodule in the left lower lobe. 4. Changes of centrilobular emphysema. Fleischner guidelines were followed. >=6 mm (single partly solid nodule): initial follow-up CT at 3-6 months is recommended to confirm persistence. If unchanged and solid component remains <6 mm, annual CT should be performed for 5 years. Persistent part solid nodules with solid components >6 mm should be considered highly suspicious with a substantial likelihood of local invasion. Therefore PET/CT, biopsy or resection are recommended in this setting. Electronically signed by: Trang Bettencourt MD 05/29/2024 09:41 AM EDT
== END 2024-05-02 07:34 | disposition home or self-care (01) ==
LOC: HO.CT 07:33
PROVIDERS: PCP Internal Medicine; Visit Provider Internal Medicine Pulmonary Disease
DX: R91.1 Solitary pulmonary nodule (principal); Z91.89 Other specified personal risk factors, not elsewhere classified
CPT/HCPCS: 71250

== ENCOUNTER 2024-05-05 08:19 | Outpatient (AMB) | payer MEDICARE, OTHER, SELFPAY ==
--- NOTE | 2024-05-05 08:24 | AM.OFFWIN_ITS ---
Intake Vital Signs 05/05/24 08:25 Height 5 ft 1 in BP 120/80 Blood Pressure Location Rt brachial Position Sitting Pulse 81 Pulse Source Pulse Oximeter Temp 98 F Temp Source Temporal Artery Scan Pulse Oximetry (%) 96 Oxygen Delivery Method Room Air Intake Visit Reasons: EP Rash Intake Note: pt c/o rash Patient Tobacco Use Status: Never used Tobacco Allergies penicillin V Allergy (Mild, Verified 05/05/24 08:24) rash Sulfa (Sulfonamide Antibiotics) Allergy (Mild, Verified 05/05/24 08:24) rash sulfacetamide Allergy (Mild, Verified 05/05/24 08:24) unknown Do you need a note to return to daycare/school/sports/work: No HPI HPI Comments History of Present Illness Details This is a 69-year-old female who presents to the walk-in clinic complaining of a rash. She states the rash for started on her left wrist following a suspected spider bite. She then started to notice a rash on the left side of her trunk and the left side of her abdomen. She states the rash is pruritic. She denies any surrounding erythema or purulent drainage. She has been utilizing pali-kaj-yuipguy hydrocortisone cream without much relief. [facility] Medical History Diverticulosis Tubular adenoma Hyperlipidemia Normal Pap smear Mammogram normal Annual physical exam Nephrolithiasis Atherosclerosis of both carotid arteries Parotitis Anxiety Neutropenia Surgical History H/O colonoscopy Family History Father Hypertension Mother No problems noted. Social History Housing: House Patient Tobacco Use Status: Never used Tobacco e-Cigarette/Vaping Use: Never Used Current occupational status: employed Cognitive needs: No Hearing needs: No Vision needs: Yes Review of Systems Const All systems reviewed & are unremarkable except as noted in HPI and below Reports no additional complaints Eyes Reports no additional complaints ENT Reports no additional complaints Card Reports no additional complaints Resp Reports no additional complaints GI Reports no additional complaints Reports no additional complaints Musc Reports no additional complaints Skin/Breast Reports system reviewed and no additional complaints, except as documented Neuro Reports no additional complaints Psych Reports no additional complaints Endo Reports no additional complaints Mookie/Lymph Reports no additional complaints Aller/Immun Reports no additional complaints Physical Exam Vital Signs: Last Vital Signs Temp 98 F 05/05/24 08:25 Pulse 81 05/05/24 08:25 BP 120/80 05/05/24 08:25 Pulse Ox 96 05/05/24 08:25 Oxygen Delivery Method Room Air 05/05/24 08:25 Const Other: Vital signs reviewed. Constitutional: Non-toxic appearing. No acute distress. Well-developed and well-nourished. HEENT: Normocephalic and atraumatic. Skin: Warm and dry. There is a small erythematous plaque on the anterior aspect of her left wrist with 3 surrounding scabbed lesions. There are also several small scabbed lesions to the left intra-abdominal fold and another to the left abdomen. There is no surrounding erythema or purulent drainage. There is no fluctuance or induration. Neck: Full and painless range of motion. No cervical lymphadenopathy. Cardio: Regular rate. Pulmonary: No respiratory distress. No accessory muscle usage. Musculoskeletal: Normal range of motion in joints throughout the body. No deformity or other signs of injury. Neuro: Alert and oriented x4. Cranial nerves 2-12 grossly intact. No focal deficits appreciated. Psych: Normal mood and affect. Assessment & Plan Assessment & Plan (1) Contact dermatitis: Code(s): L25.9 - Unspecified contact dermatitis, unspecified cause Qualifiers: Contact dermatitis type: irritant Contact dermatitis trigger: unspecified trigger Qualified Code(s): L24.9 - Irritant contact dermatitis, unspecified cause Plan: This is a 69-year-old female who presented to the walk-in clinic complaining of a rash to her left wrist and left abdomen. History and physical appear most consistent with contact dermatitis likely in the setting of suspected spider bite as well as significant heat exposure. Rash does not appear consistent with herpes zoster given the rash is not in a dermatomal distribution. Rash is not consistent with erythema migrans. Patient was given a prescription for triamcinolone 0.025% twice daily as needed for rash/itching. She was also advised that she could take diphenhydramine at bedtime to help with the itching. Recommended local wound care including keeping the area clean with soap and water, drying the area, and applying bacitracin/topical antibiotic cream. Patient was advised to follow-up here or proceed to the emergency room if she were to develop worsening/persistent at, throat/tongue swelling or difficulty swallowing, or chest tightness/wheezing. Patient verbalized her understanding and she is in agreement with plan. Medications: New triamcinolone acetonide 0.025% 1 appl topical BID PRN 15 grams 0RF rash, itching Coding Level of Care Code Est Pt Level 3 (36690) Diagnoses Irritant contact dermatitis, unspecified trigger L24.9 Contact dermatitis type: irritant Contact dermatitis trigger: unspecified trigger
[2024-05-05 08:25] VITALS: BP 120/80; PULSE 81; TEMP 36.6; O2SAT 96
== END 2024-05-05 08:57 | disposition home or self-care (01) ==
PROVIDERS: PCP Internal Medicine; Visit Provider Physician Assistant Medical
DX: L24.9 Irritant contact dermatitis, unspecified cause (principal)
CPT/HCPCS: 99213

== ENCOUNTER 2024-12-03 09:24 | Emergency (ER) | payer MEDICARE, OTHER, SELFPAY ==
--- NOTE | ~2024-12-03 | XR_ITS ---
CLINICAL HISTORY: pain s p fall AP pelvis, Two views of the left hip. COMPARISON: None FINDINGS: Pelvic ring appears intact. Advanced degenerative changes of the partially visualized lower lumbar spine. Visualized portions of the contralateral right hip appear intact. Left hip: Prominent osteophytes present along the femoral head. Decreased left hip joint space. No trabecular disruption or cortical discontinuity. Visualized portions of the proximal left femur appear intact. IMPRESSION: 1. No radiographic evidence of acute injury to the pelvis and left hip. 2. Advanced degenerative changes of the left hip. 3. Degenerative changes of the partially visualized lower lumbar spine. This document has been electronically signed by: Antonio Toussaint MD on 12/03/2024 13:50:17
--- NOTE | ~2024-12-03 | CT_ITS ---
CLINICAL HISTORY: fall, L frontal neck pain CT head without contrast. CT angiography head and neck with contrast. 3D Postprocessing. COMPARISON: None FINDINGS: HEAD CT: No intra-axial mass, midline shift, hydrocephalus, or acute hemorrhage. No significant atrophy-like change or white matter disease. Mucosal retention cyst present within the right maxillary sinus. Mastoid air cells are clear. The orbits are within normal limits. No calvarial fracture. HEAD AND NECK CTA: Aortic arch and cervical great vessels are patent. Two arch branch vessels. Small amount of calcified plaque present at the carotid bulb and along the proximal left internal carotid artery without significant stenosis. Intracranial arteries are patent. Small amount of calcified plaque present along the cavernous portions of the internal carotid arteries without significant stenosis. No aneurysm, dissection, or occlusion. No abnormal intracranial enhancement. Nodular thickened appearance of the isthmus and left thyroid gland. No cervical mass or fluid collection identified. Mild emphysema partially visualized lung apices. Patchy ground-glass opacity present within the right upper lobe and to a lesser degree of the left upper lobe. Reversal of normal cervical lordosis. [id number] mid to lower cervical spondylosis. No acute fracture identified. IMPRESSION: 1. No acute intracranial findings. 2. Patent head and neck CTA. 3. Patchy ground-glass opacities at the partially visualized lung apices. Nonspecific finding can be associated with pulmonary edema or multifocal infection. 4. Heterogeneous nodular appearance of the left thyroid lobe. Recommend correlation with nonemergent thyroid ultrasound if not already performed. This document has been electronically signed by: Antonio Toussaint MD on 12/03/2024 14:25:36
[2024-12-03 09:33] VITALS: BP 128/72; PULSE 70; RESP 16; TEMP 36.9; O2SAT 97; BMI 32.0
--- NOTE | 2024-12-03 11:17 | ED.FALL ---
HPI - Fall General Chief Complaint: Fall Stated Complaint: fall on wednesday Time Seen by Provider: 12/03/24 11:05 Source: patient and RN notes reviewed Mode of arrival: ambulatory Limitations: no limitations History of Present Illness ED Provider: Marilee Steinberg PA-C HPI Narrative: This is a 69-year-old female, with a past medical history of hyperlipidemia, who presents emergency department with complaints of neck pain status post mechanical fall which occurred on Wednesday. Patient reports that while she was outside [place], she slipped and fell, landing onto her buttocks, and striking her head. She denies LOC. She was able to get herself up off the ground. She states that she had a mild headache that some of the right side and then progressed behind her right eye. She states that after several hours the pain resolved. She states that the next morning she was the passenger of a vehicle when she was traveling, and noticed that her neck was bothering her and causing her pain especially in stop and go traffic. She states that she still continues to have neck pain, primarily sensitive on the left frontal region of her neck. Pain worsens with movement. She denies any headache, dizziness, blurred vision, double vision, chest pain, shortness of breath, abdominal pain, nausea, vomiting or diarrhea. She is not on anticoagulation, she is not on aspirin. Denies any other complaints or concerns at this time. MD complaint: fall Onset (ago): day(s) Fall from: standing Place fall occurred: home Loss of consciousness: none Prolonged down time: no Symptoms prior to fall: none Context: tripped/slipped Location of injury: head Severity: moderate Quality: aching Associated symptoms (after fall): headache and neck pain Related Data Home Medications ?Medication ?Instructions ?Recorded ?Confirmed cholecalciferol (vitamin D3) 50 100 mcg PO DAILY 08/03/23 01/31/24 mcg (2,000 unit) tablet estradiol 0.01% (0.1 mg/gram) vaginal 05/05/24 vaginal cream Previous Rx's ?Medication ?Instructions ?Recorded pravastatin 20 mg tablet 20 mg PO BEDTIME #90 tabs 03/15/24 lorazepam 0.5 mg tablet 0.5 mg PO DAILY PRN anxiety #10 04/14/24 tabs triamcinolone acetonide 0.025 % 1 appl topical BID PRN rash, 05/05/24 topical cream itching #15 grams Allergies Allergy/AdvReac Type Severity Reaction Status Date / Time penicillin V Allergy Mild rash Verified 12/03/24 09:34 Sulfa (Sulfonamide Allergy Mild rash Verified 12/03/24 09:34 Antibiotics) sulfacetamide Allergy Mild unknown Verified 12/03/24 09:34 Review of Systems Review of Systems: Yes all other systems are reviewed and are negative Constitutional: Constitutional: Reports as per [facility] Past Medical History Medical History Diverticulosis Tubular adenoma Hyperlipidemia Normal Pap smear Mammogram normal Annual physical exam Nephrolithiasis Atherosclerosis of both carotid arteries Parotitis Anxiety Neutropenia Surgical History H/O colonoscopy Family History Family History Father Hypertension Mother No problems noted. Social History Social History Housing: House Patient Tobacco Use Status: Never used Tobacco e-Cigarette/Vaping Use: Never Used Current occupational status: employed Cognitive needs: No Hearing needs: No Vision needs: Yes Physical Exam Vital Signs: Vital Signs: Last Vital Signs Temp 0 F L 12/03/24 15:20 Pulse 68 12/03/24 15:20 Resp 16 12/03/24 15:20 BP 141/59 H 12/03/24 15:20 Pulse Ox 98 12/03/24 15:20 O2 Del Method Room Air 12/03/24 15:20 BMI result Body Mass Index 32.0 Const: General: cooperative, comfortable and no acute distress Orientation/consciousness: patient oriented x3 Limitations: no limitations HEENT: Head: Yes normal to inspection, Yes normocephalic and Yes atraumatic Ears: hearing grossly normal bilaterally General nose exam: Normal external nose present Face and sinus: Yes normal facial exam Mouth: Normal oral and palatal mucosa present, oropharynx normal and moist mucous membranes Throat: Yes posterior oropharynx normal Eyes: General: appearance normal, both eyes and all related structures Eyelids: Yes eyelids normal Conjunctivae: conjunctivae normal Sclerae: sclerae normal Pupils: Equal, round and reactive pupils present EOM: EOMs intact bilaterally Neck: Other: Tenderness palpation along the left anterior neck, with no palpable deformities or swelling. Neck: Yes normal visual inspection, Yes full ROM and Yes no lymphadenopathy Lymphatic: no lymphadenopathy noted Chest: Chest palpation & inspection: normal inspection of the chest Resp: Effort & Inspection: normal respiratory effort and able to speak in complete sentences Auscultation: clear to auscultation bilaterally, no crackles, no rales, no rhonchi and no wheezes Cardio: Rate: regular rate Rhythm: regular rhythm Heart sounds: S1 normal heart sound present and S2 normal heart sound present GI: Inspection: Yes normal to inspection Back/Spine/Pelvis: Other: No midline spine tenderness on examination. Buttocks, with no ecchymosis, or tenderness palpation. She does report tenderness palpation along the left posterior hip, no palpable deformity or swelling. No ecchymosis seen. No bony step-off. Patient was ambulatory Strength 5/5 in lower extremities. Skin: General skin exam: no rashes or lesions noted Trauma: no lacerations or abrasions Wounds: no wounds Neuro: General: patient oriented x3 and moves all extremities Cranial nerves: Yes Equal, round and reactive pupils present Cognition (Neuro): normal cognition Gait exam (Neuro): Normal gait present Motor exam (neuro): 5/5 motor strength present throughout and Pronator motor function not present Coordination: iiatyq-tb-rldf test normal and kbiq-kv-zpqr test normal Extrem: General: Yes normal to inspection Right upper extremity: normal to inspection Left upper extremity: normal to inspection Right lower extremity: normal to inspection Left lower extremity: normal to inspection Course Reevaluation(s) Reevaluation #1: CTA revealing patchy ground-glass opacities at the partially visualized lung apices, nonspecific finding. She has not had any recent infection > unlikely infectious process. Patient reports that she does have a history of lung nodules in the past, she will follow-up with her primary care. Also discussed homogeneous nodular appearance of the left thyroid, recommending thyroid ultrasound. She has a primary care physician who she will follow-up in regards to this. X-ray of the left hip reveal no acute changes. Discussed overall workup with patient. Patient does have history of neutropenia, wbc's are 1.1 today. Discussed with patient that she needs to follow-up with the typing teacher, she has a typing teacher however admits that she has not been seen by them in several years as she has had clearance. Previous blood cell counts very from 1.4-2. She states that 1.1 is around her baseline has a recent. Patient referred to Dr. Lea for further workup. Given strict return precautions. She understands agrees with plan. Patient stable for discharge. Time: 14:56 Medications Administered Discontinued Medications Generic Name Dose Route Start Last Admin Trade Name Ady PRN Reason Stop Dose Admin Iohexol 70 ml 12/03/24 13:05 12/03/24 13:06 Iohexol 350 Mg/Ml 100 Ml Infus..Btl IV 12/03/24 13:06 70 ml ONCE ONE Administration Medical Decision Making Medical Decision Making [facility] Narrative: This is a 69-year-old female who presents emergency department for evaluation of neck pain status post mechanical fall which occurred on December 01. On arrival, patient well-appearing under no acute distress. Vital signs within normal limits. She is speaking in full sentences. She was neurologically intact, no focal deficits. She is not on anticoagulation. Fall was a slipping fall with head strike. No LOC. Patient has tenderness palpation along the left anterior neck, given this finding, there was concern for possible carotid dissection although this is unlikely, therefore CTA was ordered. Also ordered CT head without contrast to rule out any ICH. Other differential diagnoses including closed head injury, concussion, whiplash, cervical strain, cervical fracture. She has no midline spine tenderness. Differential Diagnosis Differential Diagnoses: The differential diagnosis associated with the presentation includes See above Admission/Observation Consideration of admission/observation: Escalation of care including admission/observation considered Lab Data [facility] Lab Attestation statement: I reviewed the patient's lab results. Patient leukopenic at 1.1, she has a chronic history of this, states that her previous records was around the same. She has been followed by Hematology in the past for this. Chemistry with no significant electrolyte derangement. 12/03/24 11:49 12/03/24 11:49 Labs: Lab Results 12/03/24 Range/Units 11:49 WBC 1.1 L (4.8-10.8) X10*3/uL RBC 4.27 (4.20-5.50) X10*6/uL Hgb 12.7 (12.0-16.0) g/dl Hct 37.7 (37.0-47.0) % MCV 88.3 (80.0-98.0) fL MCH 29.7 (27.0-33.0) pg MCHC 33.7 (31.0-35.0) g/dl RDW 13.2 (11.0-16.0) % Plt Count 199 (160-400) X10*3/uL MPV 9.0 L (9.4-12.3) fL Immature Gran % (Auto) 0.0 (0.0-0.4) % Neut % (Auto) 42.6 L (45-73) % Lymph % (Auto) 46.3 H (20-40) % Rice % (Auto) 10.2 (2-11) % Eos % (Auto) 0.9 (0-4) % Baso % (Auto) 0.0 (0-2) % Lymph # (Auto) 0.5 L (1.2-4.9) X10*3/uL Rice # (Auto) 0.1 (0.1-1.2) X10*3/uL Eos # (Auto) 0.0 (0.0-0.4) X10*3/uL Baso # (Auto) 0.0 (0.0-0.2) X10*3/uL Abs Immat Gran (auto) 0.00 (0.00-0.03) X10*3/uL Absolute Neuts (auto) 0.5 L (2.0-8.3) x10*3/uL Absolute Nucleated RBC 0.000 (0.0-0.012) X10*3/uL Nucleated RBC % (auto) 0.0 (0.0-0.2) /100WBC Smear Tech's Comments VERIFIED PT 13.0 H (10.9-12.4) SEC INR 1.1 (0.9-1.1) APTT 29.7 (26.0-36.8) SEC Sodium 142 (135-145) mmol/L Potassium 4.2 (3.3-5.1) mmol/L Chloride 111 H (96-108) mmol/L Carbon Dioxide 23 (22-29) mmol/L Anion Gap 12 (12-20) BUN 11 (9-16) mg/dL Creatinine 0.67 (0.5-1.4) mg/dL Estim Creat Clear Calc 70.3 Estimated GFR > 60 Random Glucose 92 (60-115) mg/dL Calcium 9.1 (8.4-10.2) mg/dL Total Bilirubin 0.5 (0.0-1.0) mg/dL AST 19 (5-31) U/L ALT 15 (0-31) U/L Alkaline Phosphatase 83 (39-117) U/L Total Protein 7.7 (6.5-8.0) g/dL Albumin 3.7 (3.5-5.0) g/dL Radiology Impression Discussion of test interpretation with radiology: I have reviewed the radiologist's reading. Radiologist Impression: Report Number: [id number]: Total DLP = 1414.00 mGy-cm CLINICAL HISTORY: fall, L frontal neck pain CT head without contrast. CT angiography head and neck with contrast. 3D Postprocessing. COMPARISON: None FINDINGS: HEAD CT: No intra-axial mass, midline shift, hydrocephalus, or acute hemorrhage. No significant atrophy-like change or white matter disease. Mucosal retention cyst present within the right maxillary sinus. Mastoid air cells are clear. The orbits are within normal limits. No calvarial fracture. HEAD AND NECK CTA: Aortic arch and cervical great vessels are patent. Two arch branch vessels. Small amount of calcified plaque present at the carotid bulb and along the proximal left internal carotid artery without significant stenosis. Intracranial arteries are patent. Small amount of calcified plaque present along the cavernous portions of the internal carotid arteries without significant stenosis. No aneurysm, dissection, or occlusion. No abnormal intracranial enhancement. Nodular thickened appearance of the isthmus and left thyroid gland. No cervical mass or fluid collection identified. Mild emphysema partially visualized lung apices. Patchy ground-glass opacity present within the right upper lobe and to a lesser degree of the left upper lobe. Reversal of normal cervical lordosis. Uhuifkny-co-nbmrkj mid to lower cervical spondylosis. No acute fracture identified. IMPRESSION: 1. No acute intracranial findings. 2. Patent head and neck CTA. 3. Patchy ground-glass opacities at the partially visualized lung apices. Nonspecific finding can be associated with pulmonary edema or multifocal infection. 4. Heterogeneous nodular appearance of the left thyroid lobe. Recommend correlation with nonemergent thyroid ultrasound if not already performed. This document has been electronically signed by: Antonio Toussaint MD on 12/03/2024 14:25:36 Dictated By: Antonio Toussaint MD Discharge Plan Discharge Clinical Impression: Closed head injury, Neutropenia, Cervical muscle strain, Abnormal finding on CT scan Patient Disposition: Home, Self-Care Instructions: Cervical Strain (ED), Muscle Strain (ED), Head Injury (ED), Neutropenia (ED) Additional Instructions: You were seen in the emergency department after a fall. Your head CT does not show any new findings from the fall. You do have nodular appearance to your left thyroid lobe, recommending outpatient thyroid ultrasound, this can be ordered by your primary care physician. You also have patchy ground-glass opacities at the lung apices, this is nonspecific, please follow-up with your primary care physician regarding this finding. You also have some calcification within your left carotid artery without any significant stenosis. This would not be the source of your symptoms. You have degenerative changes within your neck, hip and your and lower spine. You are also neutropenic, you have a history of this, I am recommending you follow-up with your primary care physician, as well as a typing teacher. I am referring you to Dr. Velazquez. Please rest, drink plenty of fluids get plenty of rest. May take Tylenol as needed for pain. If any new or worsening symptoms occur including but not limited to severe headache, dizziness, blurred vision, double vision, chest pain, shortness of breath, please seek emergent care. Prescriptions: No Action pravastatin 20 mg tablet 20 mg PO BEDTIME Qty: 90 3RF lorazepam 0.5 mg tablet 0.5 mg PO DAILY PRN (Reason: anxiety) Qty: 10 0RF estradiol 0.01 % (0.1 mg/gram) cream vaginal triamcinolone acetonide 0.025 % cream 1 appl topical BID PRN (Reason: rash, itching) Qty: 15 0RF cholecalciferol (vitamin D3) 50 mcg (2,000 unit) tablet 100 mcg PO DAILY Referrals: Zeynep Gilman MD [Physician] - Interventions: ED Discharge Assessment Last Done: 12/03/24 15:20 Discharge Date/Time: 12/03/24 15:21 Print Language: [place]
[2024-12-03 11:55] VITALS: BP 120/62; PULSE 68; RESP 16; O2SAT 97
[2024-12-03 11:57] LABS: Eosinophils Percent Auto 0.9 % (0-4); Hematocrit 37.7 % (37.0-47.0); Hemoglobin 12.7 g/dl (12.0-16.0); Lymphocytes Absolute Auto 0.5 X10*3/uL (1.2-4.9); Lymphocytes Percent Auto 46.3 % (20-40); MANUAL DIFF FLAG SCAN; Mean Corpuscular HGB Conc 33.7 g/dl (31.0-35.0); Mean Corpuscular Hemoglobin 29.7 pg (27.0-33.0); Mean Corpuscular Volume 88.3 fL (80.0-98.0); Monocytes Absolute Auto 0.1 X10*3/uL (0.1-1.2); Monocytes Percent Auto 10.2 % (2-11); Neutrophils Absolute Auto 0.5 x10*3/uL (2.0-8.3); Neutrophils Percent Auto 42.6 % (45-73); Platelet Count 199 X10*3/uL (160-400); Red Blood Count 4.27 X10*6/uL (4.20-5.50); Red Cell Distribution Width 13.2 % (11.0-16.0); SCAN SMEAR FLAG 1
[2024-12-03 11:59] LABS: White Blood Count 1.1 X10*3/uL (4.8-10.8)
[2024-12-03 12:08] LABS: INTERNATIONAL NORM RATIO 1.1 (0.9-1.1)
[2024-12-03 12:11] LABS: Partial Thromboplastin Time 29.7 SEC (26.0-36.8)
[2024-12-03 12:14] LABS: SLIDE REVIEW VERIFIED
[2024-12-03 12:16] LABS: Alanine Aminotransferase 15 U/L (0-31); Albumin Level 3.7 g/dL (3.5-5.0); Alkaline Phosphatase 83 U/L (39-117); Anion Gap 12 (12-20); Aspartate Amino Transferase 19 U/L (5-31); Bilirubin Total 0.5 mg/dL (0.0-1.0); Blood Urea Nitrogen 11 mg/dL (9-16); Calcium 9.1 mg/dL (8.4-10.2); Carbon Dioxide 23 mmol/L (22-29); Chloride 111 mmol/L (96-108); Creatinine Clr Calc Pharmacy 70.3; Estimated Glomerular Filt Rate > 60; Glucose Random 92 mg/dL (60-115); Potassium 4.2 mmol/L (3.3-5.1); Sodium 142 mmol/L (135-145); Total Protein 7.7 g/dL (6.5-8.0)
[2024-12-03] MEDS: iohexoL 350 MG/ML 100 ML INFUS..BTL 70 ML IV (13:06)
[2024-12-03 15:20] VITALS: BP 141/59; PULSE 68; RESP 16; TEMP -17.7; TEMP 0; O2SAT 98
== END 2024-12-03 15:21 | disposition home or self-care (01) ==
PROVIDERS: Physician Assistant Medical; Emergency Provider Emergency Medicine; PCP Internal Medicine
DX: S09.90XA Unspecified injury of head, initial encounter (principal); S16.1XXA Strain of muscle, fascia and tendon at neck level, initial encounter; R51.9 Headache, unspecified; D70.9 Neutropenia, unspecified; M25.552 Pain in left hip; H57.11 Ocular pain, right eye; W01.0XXA Fall on same level from slipping, tripping and stumbling without subsequent striking against object, initial encounter; Y93.9 Activity, unspecified; Y92.9 Unspecified place or not applicable; Y99.8 Other external cause status; Z79.899 Other long term (current) drug therapy; Z51.81 Encounter for therapeutic drug level monitoring
CPT/HCPCS: 36415; 70496; 70498; 73502; 80053; 85025; 85610; 85730; 99284; Q9967

== ENCOUNTER → 2024-12-03 11:40 | Outpatient (BNV) | payer MEDICARE, OTHER, SELFPAY | PROVIDERS: Emergency Provider Emergency Medicine; PCP Internal Medicine; Visit Provider Radiology Diagnostic Radiology | DX: M16.12 Unilateral primary osteoarthritis, left hip (principal); E04.1 Nontoxic single thyroid nodule; R22.1 Localized swelling, mass and lump, neck | CPT/HCPCS: 70496; 70498; 73502 ==

== ENCOUNTER 2024-12-12 12:47 | Outpatient (AMB) | payer MEDICARE, OTHER, SELFPAY ==
[2024-12-12 12:49] VITALS: BP 118/68; PULSE 76; RESP 18; TEMP 37.1; O2SAT 96; BMI 32.4
--- NOTE | 2024-12-12 12:49 | MHC.PC.OV ---
Vital Signs 12/12/24 12:49 Height 5 ft Weight 166 lb BMI 32.4 BP 118/68 Blood Pressure Location Lt brachial Position Sitting Respiration 18 Pulse 76 Pulse Source Pulse Oximeter Temp 98.7 F Temp Source Oral Pulse Oximetry (%) 96 Oxygen Delivery Method Room Air Intake Visit Reasons: headache in back of head/nauseous Intake Note: Pt is here today for a sick visit. Pt states that she slipped fell and hit the back of her head and her back. Allergies penicillin V Allergy (Mild, Verified 12/12/24 12:50) rash Sulfa (Sulfonamide Antibiotics) Allergy (Mild, Verified 12/12/24 12:50) rash sulfacetamide Allergy (Mild, Verified 12/12/24 12:50) unknown Medication List - Last Reconciled 12/12/24 by Evelyn Rubio MD baclofen 10 mg PO BEDTIME cholecalciferol (vitamin D3) 100 mcg PO DAILY estradiol 0.01%(0.1mg/gram) vaginal lorazepam 0.5 mg PO DAILY PRN meloxicam 7.5 mg PO DAILY pravastatin 20 mg PO BEDTIME triamcinolone acetonide 0.025% 1 appl topical BID PRN Tobacco use date assessed: 12/12/24 Fall risk assessment: 1 Fall in past year Last assessed Fall Risk: 12/12/24 Dental Screening Dental Screen Date: 12/12/24 Did you have a dental visit in the last 12 months?: Yes Did you have a dental problem in the last 6 months where you did not have access to dental care?: No Was dental information given to patient?: Patient has dentist HPI headache in back of head/nauseous HPI Details Patient presents for the follow-up of ER visit. She slipped on ice and fell hitting the back of her head and lower back. She denies any loss of consciousness. Patient had CT of brain and neck without acute findings. She reports persistent lower back pain worse when walking or sitting down. She denies pain radiating to lower extremities, change in bowel or bladder function. [facility] Medical History (Updated 12/12/24 @ 14:11 by Evelyn Rubio MD) Diverticulosis Tubular adenoma Hyperlipidemia Normal Pap smear Mammogram normal Annual physical exam Nephrolithiasis Atherosclerosis of both carotid arteries Parotitis Anxiety Neutropenia Surgical History H/O colonoscopy Family History Father Hypertension Mother No problems noted. Social History Housing: House Patient Tobacco Use Status: Never used Tobacco e-Cigarette/Vaping Use: Never Used service: No Current occupational status: employed Cognitive needs: No Hearing needs: No Vision needs: Yes Questionnaire PHQ-9 Over the last 2 weeks, how often have you been bothered by any of the following problems? 1. Little interest or pleasure in doing things: not at all 2. Feeling down, depressed, or hopeless: not at all 3. Trouble falling or staying asleep, or sleeping too much: not at all 4. Feeling tired or having little energy: not at all 5. Poor appetite or overeating: not at all 6. Feeling bad about yourself - or that you are a failure or have let yourself or your family down: not at all 7. Trouble concentrating on things, such as reading the newspaper or watching television: not at all 8. Moving or speaking so slowly that other people could have noticed. Or the opposite - being so fidgety or restless that you have been moving around a lot more than usual: not at all 9. Thoughts that you would be better off or of hurting yourself in some way: not at all Total score: 0 Depression Screening Interpretation: Negative Depression Screening Done: Yes 09102 - PHQ-9 Billing: Yes Source: Developed by Drs. Michael Figueroa, Holly Azevedo, Jerrod Paul and colleagues, with an educational pascale from [employer]. Thrive Questionnaire Date Thrive assessed: 12/12/24 I am a: Patient What is your living situation today?: I have a steady place to live Within the past 12 months, did the food you bought not last and you didn't have the money to get more?: Never true Within the past 12 months, did you worry whether your food would run out before you got money to buy more?: Never true Do you have trouble paying for medicines?: No Do you have trouble getting transportation to medical appointments?: No Do you have trouble paying your heating and electricity bill?: No Do you have trouble taking care of your child, family member or friend?: No Do you have trouble with day-to-day activities such as bathing, preparing meals, shopping, managing finances, etc.?: No Are you currently unemployed and looking for a job?: Yes Are you interested in more education?: No Please select the resources that you would like help with: None Currently or been in a relationship where the following occur: No concerns reported THRIVE Score: 0 AUDIT C Alcohol Use Questionnaire (AUDIT-C) 1. How often do you have a drink containing alcohol?: Monthly or less 2. How many drinks containing alcohol do you have on a typical day when you are drinking?: 1 or 2 3. How often do you have six or more drinks on one occasion?: Never Total Score: 1 RADHA-7 AMB Questionnaire RADHA-7 Date RADHA - 7 assessed: 12/12/24 Feeling nervous, anxious, or on edge: 0 = Not at all Not being able to stop or control worryin = Not at all Worrying too much about different things: 0 = Not at all Trouble relaxin = Not at all Being so restless that it is hard to sit still: 0 = Not at all Becoming easily annoyed or irritable: 0 = Not at all Feeling afraid as if something awful might happen: 0 = Not at all Total RADHA-7 score (0-4 normal; 5-9 mild; 10-14 moderate; 15-21 severe): 0 Source: Developed by Drs. Michael Figueroa, Holly Azevedo, Jerrod Paul and colleagues, with an educational pascale from [employer]. RADHA-7 Assessment Billing RADHA-7 Assessment Tool: RADHA-7 Assessment 86245 Review of Systems Const All systems reviewed & are unremarkable except as noted in HPI and below Eyes Reports no additional complaints ENT Reports no additional complaints Card Reports no additional complaints Resp Reports no additional complaints GI Reports no additional complaints Reports no additional complaints Physical exam (Primary Care) Vital Signs: Last Vital Signs Temp 98.7 F 12/12/24 12:49 Pulse 76 12/12/24 12:49 Resp 18 12/12/24 12:49 BP 118/68 12/12/24 12:49 Pulse Ox 96 12/12/24 12:49 Oxygen Delivery Method Room Air 12/12/24 12:49 BMI result Body Mass Index 32.4 Tobacco/Smoking Status: Tobacco use Status Tobacco use date assessed 12/12/24 12/12/24 12:54 Patient Tobacco Use Status Never used Tobacco 12/12/24 12:54 e-Cigarette/Vaping Use Never Used 12/12/24 12:54 PHQ-9: PHQ-9 Score PHQ-9: Total score 0 12/12/24 12:54 Depression Screening Interpretation: Negative Thrive Assessment: Date of Thrive Assessment Date Thrive assessed 12/12/24 12/12/24 12:54 Currently or been in a relationship where the following occur: No concerns reported Const General: no acute distress HENMT Head: Yes normal to inspection Face and sinus: Yes normal facial exam Eyes General: appearance normal, both eyes and all related structures Neck Neck: Yes supple Resp Effort & Inspection: normal respiratory effort Auscultation: clear to auscultation bilaterally Cardio Rhythm: regular rhythm Heart sounds: S1 normal heart sound present and S2 normal heart sound present Back/Spine/Pelvis Other: Lower spinal paraspinal tenderness straight leg rising 90 degrees bilaterally. There is decreased range of motion of the left hip Coding Level of Care Code Est Pt Level 4 (27484) Diagnoses Thyroid nodule E04.1 Lower back pain M54.50 Neutropenia D70.9 Osteoarthritis of left hip M16.12 Emphysema lung J43.9 Additional Codes RADHA-7 Assessment Billing - RADHA-7 Assessment Tool: RADHA-7 Assessment 21921 ([id number]) PHQ-9 - 32513 - PHQ-9 Billing: Yes ([id number]) Assessment & Plan Assessment & Plan (1) Thyroid nodule: Code(s): E04.1 - Nontoxic single thyroid nodule Category: Medical Plan: For question of thyroid nodule found on the CT of the neck thyroid ultrasound will be ordered (2) Lower back pain: Code(s): M54.50 - Low back pain, unspecified Category: Medical Plan: Meloxicam and baclofen are prescribed , patient will be referred to physical therapy (3) Neutropenia: Comment: Chronic stable for 15 yrs, negative hematology evaluation in 2014 Code(s): D70.9 - Neutropenia, unspecified Category: Medical Plan: Referred to Hematology (4) Osteoarthritis of left hip: Comment: advanced OA L hip 11/2024 Code(s): M16.12 - Unilateral primary osteoarthritis, left hip Category: Medical Plan: Continue regular exercise patient was advised to report any worsening of the pain stiffness so she will be referred to the orthopedic surgeon (5) Emphysema lung: Comment: HX of heavy marijuana smoking for over 10 yrs, on CT scan 05/26 4mm superolateral aspect of lingula, nl PFT 07/26, 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
== END 2024-12-12 14:05 | disposition home or self-care (01) ==
LOC: HO.HMCC 12:48
PROVIDERS: PCP Internal Medicine; Visit Provider Internal Medicine
DX: E04.1 Nontoxic single thyroid nodule (principal); D70.9 Neutropenia, unspecified; J43.9 Emphysema, unspecified; M54.50 Low back pain, unspecified; M16.12 Unilateral primary osteoarthritis, left hip

== ENCOUNTER → 2024-12-12 12:47 | Outpatient (BNVA) | payer MEDICARE, OTHER, SELFPAY | PROVIDERS: PCP Internal Medicine; Visit Provider Internal Medicine | DX: E04.1 Nontoxic single thyroid nodule (principal); M54.50 Low back pain, unspecified; D70.9 Neutropenia, unspecified; M16.12 Unilateral primary osteoarthritis, left hip; J43.9 Emphysema, unspecified | CPT/HCPCS: 96127; 99212 ==

== ENCOUNTER 2024-12-15 14:19 | Outpatient (REF) | payer MEDICARE, OTHER, SELFPAY ==
--- NOTE | ~2024-12-15 | US_ITS ---
EXAMINATION: US THYROID HISTORY: E04.1 - Nontoxic single thyroid nodule TECHNIQUE: Real-time grayscale ultrasound imaging was performed and images were reviewed. COMPARISON: Correlation is made with a CT angiogram of the neck dated 12/03/2024. FINDINGS: SIZE: The right thyroid lobe measures 4.7 x 1.7 x 1.3 cm. The left thyroid lobe measures 4.2 x 1.6 x 1.4 cm. The isthmus measures 10 mm. FLOW: Flow to the gland is normal. ECHOGENICITY: The echotexture of the gland is heterogeneous. NODULES: Multiple thyroid nodules are identified as described below: Nodule #: 1 Location: Lower pole of the left thyroid lobe measuring 1.6 x 1.4 x 0.9 cm. Shape: Taller than wide (3 points) Margins: Smooth (0 points) Echotexture: Indeterminate (1 point) Composition: Solid (2 points) Calcifications: Comet tail (0 points) Total points: 6 TIRADS: TR4: Moderately suspicious. Nodule #: 2 Location: Left lower isthmus measuring 1.3 x 1.2 x 1.4 cm. Shape: Wider than tall (0 points) Margins: Ill-defined (0 points) Echotexture: Isoechoic (1 point) Composition: Solid (2 points) Calcifications: None (0 points) Total points: 3 TIRADS: TR3: Mildly suspicious. Nodule #: 3 Location: Lower pole of the right thyroid lobe measuring 0.7 x 0.7 x 0.7 cm. Shape: Wider than tall (0 points) Margins: Smooth (0 points) Echotexture: Isoechoic (1 point) Composition: Mostly solid (2 points) Calcifications: None (0 points) Total points: 3 TIRADS: TR3: Mildly suspicious. US/US thyroid IMPRESSION: Multiple thyroid nodules as described. Ultrasound-guided fine-needle aspiration of the moderately suspicious nodule at the lower pole of the left thyroid lobe (nodule #1) is recommended. ACR TI-RADS Guidelines TR1: Benign, No follow-up or biopsy required TR2: Not Suspicious, No biopsy indicated TR3: Mildly Suspicious, FNA if >= 2.5 cm, Follow if >= 1.5 cm TR4: Moderately Suspicious, FNA if >= 1.5 cm, Follow if >= 1.0 cm TR5: Highly Suspicious, FNA if >= 1.0 cm, Follow if >= 0.5 cm Electronically signed by: Michael Gustafson MD 12/15/2024 03:57 PM EDT
== END 2024-12-15 14:20 | disposition home or self-care (01) ==
LOC: HO.HMGCX 14:19
PROVIDERS: PCP Internal Medicine; Visit Provider Internal Medicine
DX: E04.1 Nontoxic single thyroid nodule (principal)
CPT/HCPCS: 76536

== ENCOUNTER → 2024-12-15 14:21 | Outpatient (BNV) | payer MEDICARE, OTHER, SELFPAY | PROVIDERS: PCP Internal Medicine; Visit Provider Radiology Diagnostic Radiology | DX: E04.2 Nontoxic multinodular goiter (principal) | CPT/HCPCS: 76536 ==

== ENCOUNTER → 2025-01-16 08:07 | Outpatient (BNV) | payer MEDICARE, OTHER, SELFPAY | PROVIDERS: PCP Internal Medicine; Referring Provider Internal Medicine; Visit Provider Internal Medicine Medical Oncology | DX: D70.9 Neutropenia, unspecified (principal) | CPT/HCPCS: 99203 ==

== ENCOUNTER 2025-01-26 07:43 | Outpatient (AMB) | payer MEDICARE, OTHER, SELFPAY ==
[2025-01-26 07:50] VITALS: BP 130/70; PULSE 75; O2SAT 96; BMI 34.1
--- NOTE | 2025-01-26 07:50 | A.OFFVIS_ITS ---
Vital Signs 01/26/25 07:50 Height 5 ft Weight 174 lb 6.17 oz BMI 34.1 BP 130/70 Blood Pressure Location Lt brachial Position Sitting Pulse 75 Pulse Source Pulse Oximeter Pulse Oximetry (%) 96 Oxygen Delivery Method Room Air Intake Visit Reasons: Nontoxic single thyroid nodule Intake Note: New patient present today for Nontoxic single thyroid nodule. 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 12/03/24: CT Head and neck done because of fall, showed incidental thyroid nodules. Ultrasound 12/15/2024 I reviewed the images myself which showed overall a very heterogenous thyroid gland with the left lower pole 1.6 cm nodule which is solid, isoechoic, taller than wide, with punctate echogenic foci TR 4 category nodule which meets criteria for FNA, a lower isthmus 1.3 cm nodule which is solid isoechoic TR 3 category, and a subcentimeter right lower isthmus nodule which is also solid, isoechoic. No recent TFTs in the system. Patient currently denies heat or cold intolerance, diarrhea or constipation, hair loss, palpitation, anxiety, weight changes, mood changes, low energy, changes in appearance of eyes or vision changes, tremors, increased diaphoresis or dry skin. ? Patient denies any difficulty swallowing, pain on swallowing or voice changes or difficulty breathing. Patient had her thymus irradiated when she was 3 months old. Denies having ever used lithium, amiodarone or biotin supplements. Patient denies any family history of thyroid cancer or thyroid disease. Physical exam General: sitting comfortably in no acute distress HEENT: normocephalic/atraumatic, moist oral mucosa Neck: supple, symmetrical, no thyromegaly , no dorsocervical or supraclavicular fat pads Cardiac: normal heart sounds Pulm: normal breath sounds B/L, no added breath sounds Abd: not distended, no tenderness Extremities: no edema, no signs of myxedema Neuro: AAO x3, Speech: normal, no facial droop, moving all 4 extremities Laboratory Tests 10/19/22 09:46 TSH 3.03 EXAMINATION: US THYROID 12/15/24 HISTORY: E04.1 - Nontoxic single thyroid nodule TECHNIQUE: Real-time grayscale ultrasound imaging was performed and images were reviewed. COMPARISON: Correlation is made with a CT angiogram of the neck dated 12/03/2024. FINDINGS: SIZE: The right thyroid lobe measures 4.7 x 1.7 x 1.3 cm. The left thyroid lobe measures 4.2 x 1.6 x 1.4 cm. The isthmus measures 10 mm. FLOW: Flow to the gland is normal. ECHOGENICITY: The echotexture of the gland is heterogeneous. NODULES: Multiple thyroid nodules are identified as described below: Nodule #: 1 Location: Lower pole of the left thyroid lobe measuring 1.6 x 1.4 x 0.9 cm. Shape: Taller than wide (3 points) Margins: Smooth (0 points) Echotexture: Indeterminate (1 point) Composition: Solid (2 points) Calcifications: Comet tail (0 points) Total points: 6 TIRADS: TR4: Moderately suspicious. Nodule #: 2 Location: Left lower isthmus measuring 1.3 x 1.2 x 1.4 cm. Shape: Wider than tall (0 points) Margins: Ill-defined (0 points) Echotexture: Isoechoic (1 point) Composition: Solid (2 points) Calcifications: None (0 points) Total points: 3 TIRADS: TR3: Mildly suspicious. Nodule #: 3 Location: Lower pole of the right thyroid lobe measuring 0.7 x 0.7 x 0.7 cm. Shape: Wider than tall (0 points) Margins: Smooth (0 points) Echotexture: Isoechoic (1 point) Composition: Mostly solid (2 points) Calcifications: None (0 points) Total points: 3 TIRADS: TR3: Mildly suspicious. US/US thyroid IMPRESSION: Multiple thyroid nodules as described. Ultrasound-guided fine-needle aspiration of the moderately suspicious nodule at the lower pole of the left thyroid lobe (nodule #1) is recommended. [facility] Medical History Diverticulosis Tubular adenoma Hyperlipidemia Normal Pap smear Mammogram normal Annual physical exam Nephrolithiasis Atherosclerosis of both carotid arteries Parotitis Anxiety Neutropenia Surgical History H/O colonoscopy Family History (Updated 01/16/25 @ 08:36 by Velma Landers) Father Hypertension Pancreatic cancer Mother No problems noted. Social History (Updated 01/16/25 @ 08:35 by Velma Landers) Household Members: Spouse Housing: House Are you a primary home care aide to a significant other at home: Yes Do you presently have visiting nurse or other home services: No Patient Tobacco Use Status: Former Tobacco user e-Cigarette/Vaping Use: Never Used service: No Current occupational status: employed Cognitive needs: No Hearing needs: No Vision needs: Yes Assessment & Plan Assessment & Plan (1) Multinodular goiter: Code(s): E04.2 - Nontoxic multinodular goiter Category: Medical Plan: 70-year-old female with past medical history significant for thymus irradiation when she was 3-month-old with no family history of thyroid cancer who is coming in today for initial evaluation of multinodular goiter. 12/03/24: CT Head and neck done because of fall, showed incidental thyroid nodules. Ultrasound 12/15/2024 I reviewed the images myself which showed overall a very heterogenous thyroid gland with the left lower pole 1.6 cm nodule which is solid, isoechoic, taller than wide, with punctate echogenic foci TR 4 category nodule which meets criteria for FNA, a lower isthmus 1.3 cm nodule which is solid isoechoic TR 3 category, and a subcentimeter right lower isthmus nodule which is also solid, isoechoic. No recent TFTs in the system. I explained that it is common to have thyroid nodules. About 95% of the time these nodules are benign. However if the nodule is > 1 cm in size or suspicious on ultrasound then a fine need aspiration biopsy is recommended. We discussed that a FNAB involves 4-5 passes with a small gauge needle and material obtained is sent off for cytology.If the cytopathology is benign then the nodule will be followed annually with repeat ultrasounds. However if it is suspicious or malignant, we will need to discuss further management. Indeterminate cytology can be further investigated with repeat FNA, genetic testing or empiric lobectomy. Malignant cytology is managed with either lobectomy or total thyroidectomy. We discussed briefly that thyroid cancer is, in most patients, an indolent disease that does not affect mortality. We will arrange for FNA of the left lower 1.6 cm thyroid nodule at next available opening and patient will follow up with me in clinic thereafter for results and further decision making. Plan: -scheduled for FNA of the left lower 1.6 cm thyroid nodule and a follow up 2 weeks after to discuss results -ordered TSH and free T4 to be done now Plan I spent 45 minutes in reviewing the record, seeing the patient and documenting in the medical record. Orders: Orders US biopsy thyroid Today E04.2 - Nontoxic multinodular goiter Thyroid Stimulating Hormone Today E04.2 - Nontoxic multinodular goiter Free T4 (Free Thyroxine) Today E04.2 - Nontoxic multinodular goiter Patient Instructions: Do blood work today We will bring you in for a biopsy of your thyroid nodule Coding Level of Care Code New Pt Level 4 (60339) Diagnoses Multinodular goiter E04.2 Time Spent (min) 45
== END 2025-01-26 08:27 | disposition home or self-care (01) ==
LOC: HO.ENCR 07:44
PROVIDERS: PCP Internal Medicine; Visit Provider Student in an Organized Health Care Education/Training Program
DX: E04.2 Nontoxic multinodular goiter (principal)
CPT/HCPCS: 99204

== ENCOUNTER 2025-01-26 07:43 | Outpatient (REF) | payer MEDICARE, OTHER, SELFPAY ==
[2025-01-26 17:03] LABS: Basophils Percent Auto 0.9 % (0-2); Eosinophils Percent Auto 0.9 % (0-4); Hematocrit 38.4 % (37.0-47.0); Hemoglobin 12.9 g/dl (12.0-16.0); Lymphocytes Absolute Auto 0.5 X10*3/uL (1.2-4.9); Lymphocytes Percent Auto 49.1 % (20-40); MANUAL DIFF FLAG SCAN; Mean Corpuscular HGB Conc 33.6 g/dl (31.0-35.0); Mean Corpuscular Hemoglobin 29.8 pg (27.0-33.0); Mean Corpuscular Volume 88.7 fL (80.0-98.0); Mean Platelet Volume 8.9 fL (9.4-12.3); Monocytes Absolute Auto 0.1 X10*3/uL (0.1-1.2); Monocytes Percent Auto 12.7 % (2-11); Neutrophils Absolute Auto 0.4 x10*3/uL (2.0-8.3); Neutrophils Percent Auto 36.4 % (45-73); Platelet Count 203 X10*3/uL (160-400); Red Blood Count 4.33 X10*6/uL (4.20-5.50); SCAN SMEAR FLAG 1
[2025-01-26 17:10] LABS: Estimated Average Glucose 114 mg/dL; Hemoglobin A1C 126.3546 umol/L; Hemoglobin A1c % 5.6 % (<6.0); Total Hemoglobin (HGBA1C) 3328.7498 umol/L
[2025-01-26 17:27] LABS: White Blood Count 1.1 X10*3/uL (4.8-10.8)
[2025-01-26 17:30] LABS: SLIDE REVIEW VERIFIED
[2025-01-26 17:34] LABS: Alanine Aminotransferase 28 U/L (0-31); Albumin Level 3.9 g/dL (3.5-5.0); Alkaline Phosphatase 82 U/L (39-117); Anion Gap 9 (12-20); Aspartate Amino Transferase 23 U/L (5-31); Bilirubin Total 0.4 mg/dL (0.0-1.0); Blood Urea Nitrogen 13 mg/dL (9-16); Calcium 9.5 mg/dL (8.4-10.2); Carbon Dioxide 26 mmol/L (22-29); Chloride 107 mmol/L (96-108); Cholesterol 161 mg/dL (<200); Estimated Glomerular Filt Rate > 60; Glucose Fasting 113 mg/dL (60-99); HDL Cholesterol 47 mg/dL (>40); LDL Cholesterol Calculated 80 mg/dL (<100); Potassium 3.9 mmol/L (3.3-5.1); Sodium 138 mmol/L (135-145); Total Protein 7.4 g/dL (6.5-8.0); Triglycerides 174 mg/dL (<150)
[2025-01-26 17:49] LABS: Free T4 (Free Thyroxine) 0.84 ng/dL (0.71-1.85); TSH reflex Free T4 3.86 uIU/mL (0.32-4.0); Thyroid Stimulating Hormone 3.86 uIU/mL (0.32-4.0); Vitamin D 25-OH Total 37.4 ng/mL (>30)
== END 2025-01-26 07:44 | disposition home or self-care (01) ==
LOC: HO.LAB 07:43
PROVIDERS: PCP Internal Medicine; Visit Provider Student in an Organized Health Care Education/Training Program
DX: Z00.00 Encounter for general adult medical examination without abnormal findings (principal); E04.2 Nontoxic multinodular goiter; E78.5 Hyperlipidemia, unspecified; Z92.3 Personal history of irradiation; Z86.39 Personal history of other endocrine, nutritional and metabolic disease
CPT/HCPCS: 36415; 80053; 80061; 82306; 83036; 84439; 84443; 85025; 99202

== ENCOUNTER 2025-01-31 08:18 | Outpatient (REF) | payer MEDICARE, OTHER, SELFPAY ==
--- NOTE | 2025-01-31 08:50 | PM.PROC ---
Brief Operative Note Date of procedure: 01/31/25 Pre-op diagnosis: left inferior 1.6 cm thyroid nodule FNA biopsy Post-op diagnosis: same Procedure: THYROID FINE NEEDLE ASPIRATION PROCEDURE NOTE ? PROCEDURE PERFORMED: Ultrasound-guided FNA of thyroid nodule ? OPERATORS: Dr. Lillian Abreu ? INDICATION: left inferior 1.6 cm thyroid nodule ; FNA performed to assess for malignancy ? DESCRIPTION OF PROCEDURE: The indications for FNA (to assess for malignancy) were reviewed with the patient in detail. Potential complications (e.g., bleeding, infection, damage to local structures, absence of clear diagnosis after FNA) were reviewed. Alternatives to FNA including conservative observation or surgery were described. The patient understood and agreed to proceed. This was documented by the signing of the written informed consent form. A time-out was performed to confirm the patient's identity and the site of planned FNA. The nodule of interest was identified using ultrasound (14 MHz linear array probe). The site of FNA was then draped in the usual fashion and carefully cleaned and prepared using alcohol swabs. The skin at the previously-identified site of needle insertion was iced and sprayed with numbing spray. Under ultrasound guidance, 4__ passes were performed using a 1.5-inch, 25-gauge needle, and sample was obtained via capillary action. The needle tip was clearly visualized to be within the nodule at the time of sampling for _4_ of 4__ passes The patient tolerated the procedure well. There were no immediate complications. A small adhesive bandage was applied, and the patient was advised to take acetaminophen (rather than NSAIDs) for any discomfort and to report any signs of inflammation/infection or marked swelling. IMPRESSION: Technically successful ultrasound-guided fine needle aspiration of left inferior 1.6 cm thyroid nodule. PLAN: The patient was advised that I will provide follow-up regarding the cytology result and any subsequent plans. Lillian Abreu MD Endocrinology Attending Condition: stable Disposition: same day
== END 2025-01-31 08:19 | disposition home or self-care (01) ==
LOC: HO.US 08:18
PROVIDERS: PCP Internal Medicine; Visit Provider Student in an Organized Health Care Education/Training Program
DX: E04.2 Nontoxic multinodular goiter (principal)
CPT/HCPCS: 10005; 88173; 88305

== ENCOUNTER → 2025-01-31 08:18 | Outpatient (BNV) | payer MEDICARE, OTHER, SELFPAY | PROVIDERS: PCP Internal Medicine; Visit Provider Student in an Organized Health Care Education/Training Program | DX: E04.1 Nontoxic single thyroid nodule (principal) | CPT/HCPCS: 10005 ==

== ENCOUNTER 2025-02-07 11:20 | Day surgery (SDC) | payer MEDICARE, OTHER, SELFPAY ==
[2025-02-07] VITALS (12 sets, daily range): BP systolic 107–139; BP diastolic 48–77; PULSE 67–97; RESP 14–17; TEMP 36.3–36.8; O2SAT 95–99; BMI 33.9
--- NOTE | ~2025-02-07 | CT_ITS ---
History: Neutropenia PROCEDURES: 1. Limited preprocedure CT of the pelvis. Permanent images saved in PACS. 2. 11 g bone marrow core biopsy of the left posterior iliac spine 3. 11 g bone marrow aspirate of the left posterior iliac spine CLINICIANS: Qasim Ernst NP Preprocedural imaging reviewed with Ramakrishna Mcdonald MD MEDICATIONS: -Versed, Fentanyl , and lidocaine 1% SQ -Antibiotics: None -For additional details, please see nursing flowsheet. COMPLICATIONS: None ESTIMATED BLOOD LOSS: < 5 ml CONTRAST: None SPECIMENS: 11 g core placed in formalin. Bone marrow aspirate placed in EDTA and sodium heparin tubes MODERATE SEDATION TIME: 38 min PROCEDURE NOTE: The procedure, risks, benefits, and alternatives were carefully explained to the patient and written informed consent was obtained. The patient was placed prone on the CT table. A timeout was performed. A limited CT of the pelvis was performed to localize posterior iliac spine and choose appropriate needle entry and trajectory. The patient was prepped and draped in usual sterile fashion. The skin, subcutaneous tissues, and periosteum were anesthetized with lidocaine. Under CT guidance, an 11-gauge bone marrow biopsy needle was advanced into the posterior iliac spine, with the tip positioned slightly cephalad. An 11-gauge core biopsy of the bone marrow was performed and was placed in formalin. Next, the 11-gauge bone marrow biopsy needle was then advanced into the posterior iliac spine, under CT guidance, with the tip positioned slightly caudal. A bone marrow aspirate was performed. The specimen was placed in the provided EDTA and sodium heparin tubes. The needle was removed. A dry dressing was applied and secured with Tegaderm. There were no immediate complications. The patient was stable after the procedure and was transferred to the post anesthesia care unit. The procedure was done under moderate sedation with a dedicated nurse for monitoring of vital signs. CT/CT biopsy asp core bone marrow Impression: CT-guided bone marrow biopsy and aspirate This procedure was performed by Qasim Ernst NP and supervised by Ramakrishna Mcdonald MD. Electronically signed by: Ramakrishna Mcdonald MD 02/15/2025 02:22 PM EDT
[2025-02-07 12:03] LABS: Prothrombin Time 11.2 SEC (10.9-12.4)
[2025-02-07] MEDS: fentaNYL citrate/PF 100 MCG/2 ML VIAL 50 MCG IVPUSH (13:25)
[2025-02-07] MEDS: Midazolam HCl 2 MG/2 ML VIAL 1 MG IVPUSH (13:25)
[2025-02-07 14:30] LABS: Bone Marrow SEE SEPARATE REPORT
== END 2025-02-07 14:39 | disposition home or self-care (01) ==
PROVIDERS: Radiology Diagnostic Radiology; PCP Internal Medicine; Visit Provider Internal Medicine Medical Oncology
DX: D70.9 Neutropenia, unspecified (principal); Z92.3 Personal history of irradiation; I65.23 Occlusion and stenosis of bilateral carotid arteries; E78.5 Hyperlipidemia, unspecified; E04.2 Nontoxic multinodular goiter; K11.20 Sialoadenitis, unspecified; Z80.0 Family history of malignant neoplasm of digestive organs; F41.9 Anxiety disorder, unspecified; Z79.899 Other long term (current) drug therapy; Z88.0 Allergy status to penicillin; Z88.2 Allergy status to sulfonamides; Z87.891 Personal history of nicotine dependence
CPT/HCPCS: 36415; 38221; 38222; 85610; 88184; 88185; 88237; 88264; 88305; 88311; 88313; 99152; 99153; J2003; J2250; J2310; J3010

== ENCOUNTER → 2025-02-07 12:35 | Outpatient (BNV) | payer MEDICARE, OTHER, SELFPAY | PROVIDERS: PCP Internal Medicine | DX: D70.9 Neutropenia, unspecified (principal) | CPT/HCPCS: 38222; 77012; 99152 ==

== ENCOUNTER 2025-02-21 13:27 | Outpatient (AMB) | payer MEDICARE, OTHER, SELFPAY ==
--- NOTE | 2025-02-21 13:33 | A.OFFVIS_ITS ---
Vital Signs 3 02/21/25 13:34 Height 5 ft Weight 170 lb 10.205 oz BMI 33.3 BP 112/70 Blood Pressure Location Lt brachial Position Sitting Pulse 75 Pulse Source Pulse Oximeter Pulse Oximetry (%) 96 Oxygen Delivery Method Room Air Intake Visit Reasons: Biopsy f/u Intake Note: Patient present today for biopsy results. News Librarian Required: No Accompanied by: Spouse Allergies penicillin V Allergy (Mild, Verified 02/21/25 13:37) rash Sulfa (Sulfonamide Antibiotics) Allergy (Mild, Verified 02/21/25 13:37) rash sulfacetamide Allergy (Mild, Verified 02/21/25 13:37) unknown HPI Comments Details: 70-year-old female here today for follow up of nontoxic multinodular goiter. HPI 12/03/24: CT Head and neck done because of fall, showed incidental thyroid nodules. Ultrasound 12/15/2024 I reviewed the images myself which showed overall a very heterogenous thyroid gland with the left lower pole 1.6 cm nodule which is solid, isoechoic, taller than wide, with punctate echogenic foci TR 4 category nodule which meets criteria for FNA, a lower isthmus 1.3 cm nodule which is solid isoechoic TR 3 category, and a subcentimeter right lower isthmus nodule which is also solid, isoechoic. Patient currently denies heat or cold intolerance, diarrhea or constipation, hair loss, palpitation, anxiety, weight changes, mood changes, low energy, changes in appearance of eyes or vision changes, tremors, increased diaphoresis or dry skin. ? Patient denies any difficulty swallowing, pain on swallowing or voice changes or difficulty breathing. Patient had her thymus irradiated when she was 3 months old. Denies having ever used lithium, amiodarone or biotin supplements. Patient denies any family history of thyroid cancer or thyroid disease. Interval history 01/31/2025: Underwent FNA biopsy of the left inferior pole 1.6 cm nodule which came back as suspicious for follicular neoplasm, York category 4, Afirma results came back benign, 4% risk of malignancy. Physical exam General: sitting comfortably in no acute distress HEENT: normocephalic/atraumatic, moist oral mucosa Neck: supple, symmetrical, no thyromegaly , no dorsocervical or supraclavicular fat pads Cardiac: normal heart sounds Pulm: normal breath sounds B/L, no added breath sounds Abd: not distended, no tenderness Extremities: no edema, no signs of myxedema Neuro: AAO x3, Speech: normal, no facial droop, moving all 4 extremities Laboratory Tests 10/19/22 09:46 TSH 3.03 Laboratory Tests 01/26/25 16:42 TSH 3.86 Free T4 0.84 EXAMINATION: US THYROID 12/15/24 HISTORY: E04.1 - Nontoxic single thyroid nodule TECHNIQUE: Real-time grayscale ultrasound imaging was performed and images were reviewed. COMPARISON: Correlation is made with a CT angiogram of the neck dated 12/03/2024. FINDINGS: SIZE: The right thyroid lobe measures 4.7 x 1.7 x 1.3 cm. The left thyroid lobe measures 4.2 x 1.6 x 1.4 cm. The isthmus measures 10 mm. FLOW: Flow to the gland is normal. ECHOGENICITY: The echotexture of the gland is heterogeneous. NODULES: Multiple thyroid nodules are identified as described below: Nodule #: 1 Location: Lower pole of the left thyroid lobe measuring 1.6 x 1.4 x 0.9 cm. Shape: Taller than wide (3 points) Margins: Smooth (0 points) Echotexture: Indeterminate (1 point) Composition: Solid (2 points) Calcifications: Comet tail (0 points) Total points: 6 TIRADS: TR4: Moderately suspicious. Nodule #: 2 Location: Left lower isthmus measuring 1.3 x 1.2 x 1.4 cm. Shape: Wider than tall (0 points) Margins: Ill-defined (0 points) Echotexture: Isoechoic (1 point) Composition: Solid (2 points) Calcifications: None (0 points) Total points: 3 TIRADS: TR3: Mildly suspicious. Nodule #: 3 Location: Lower pole of the right thyroid lobe measuring 0.7 x 0.7 x 0.7 cm. Shape: Wider than tall (0 points) Margins: Smooth (0 points) Echotexture: Isoechoic (1 point) Composition: Mostly solid (2 points) Calcifications: None (0 points) Total points: 3 TIRADS: TR3: Mildly suspicious. US/US thyroid IMPRESSION: Multiple thyroid nodules as described. Ultrasound-guided fine-needle aspiration of the moderately suspicious nodule at the lower pole of the left thyroid lobe (nodule #1) is recommended. [facility] Medical History (Updated 01/26/25 @ 08:19 by Lillian Abreu MD) Multinodular goiter Diverticulosis Tubular adenoma Hyperlipidemia Normal Pap smear Mammogram normal Annual physical exam Nephrolithiasis Atherosclerosis of both carotid arteries Parotitis Anxiety Neutropenia Surgical History H/O oral surgery S/P thyroid surgery H/O colonoscopy Family History Father Hypertension Pancreatic cancer Mother No problems noted. Social History Household Members: Spouse Housing: House Are you a primary director of health care marketing to a significant other at home: Yes Do you presently have visiting nurse or other home services: No Patient Tobacco Use Status: Former Tobacco user e-Cigarette/Vaping Use: Never Used service: No Current occupational status: employed Cognitive needs: No Hearing needs: No Vision needs: Yes Physical Exam Vital Signs: Last Vital Signs Pulse 75 02/21/25 13:34 BP 112/70 02/21/25 13:34 Pulse Ox 96 02/21/25 13:34 Oxygen Delivery Method Room Air 02/21/25 13:34 BMI result Body Mass Index 33.3 Assessment & Plan Assessment & Plan (1) Multinodular goiter: Code(s): E04.2 - Nontoxic multinodular goiter Category: Medical Plan: 70-year-old female with past medical history significant for thymus irradiation when she was 3-month-old with no family history of thyroid cancer who is coming in today for initial evaluation of multinodular goiter. 12/03/24: CT Head and neck done because of fall, showed incidental thyroid nodules. Ultrasound 12/15/2024 I reviewed the images myself which showed overall a very heterogenous thyroid gland with the left lower pole 1.6 cm nodule which is solid, isoechoic, taller than wide, with punctate echogenic foci TR 4 category nodule which meets criteria for FNA, a lower isthmus 1.3 cm nodule which is solid isoechoic TR 3 category, and a subcentimeter right lower isthmus nodule which is also solid, isoechoic. Normal TSH from January 2025 01/31/2025: Underwent FNA biopsy of the left inferior pole 1.6 cm nodule which came back as suspicious for follicular neoplasm, York category 4, Afirma results came back benign, 4% risk of malignancy. I discussed with the patient that while results that are categorized as suspicious for follicular neoplasm could possibly have a 20-30% risk of malignancy, given that we have the results of the Afirma testing, which are benign, that risk is decreased, with the Afirma results suggesting a 4% risk of malignancy. I discussed both options of monitoring this nodule over time with repeat ultrasounds, versus having a diagnostic lobectomy, however given reassuring Afirma results it is reasonable to just monitor this nodule with repeat ultrasounds. Patient agreed to ultrasound surveillance. At this point we will plan to have her repeat an ultrasound end of January 2026 with plan for follow up in 1 year in February 2026. Plan: - ordered ultrasound of the thyroid to be done in end of January 2026 with follow up in 1 year in February 2026 -do TSH with a reflex free T4 a few days prior to appointment in 1 year Plan See above Orders: Orders 2 TSH reflex Free T4 01/28/26 E04.1 - Nontoxic single thyroid nodule US thyroid 01/28/26 E04.1 - Nontoxic single thyroid nodule Patient Instructions: Do ultrasound of the thyroid end of January 2026, someone we will call you to schedule this, this should be done a few weeks prior to your appointment in 1 year in February 2026 Do thyroid blood work in 1 year a few days prior to your appointment, orders are in place Coding Level of Care Code Est Pt Level 3 (31493) Diagnoses Multinodular goiter E04.2
[2025-02-21 13:34] VITALS: BP 112/70; PULSE 75; O2SAT 96; BMI 33.3
== END 2025-02-21 13:58 | disposition home or self-care (01) ==
LOC: HO.ENCR 13:28
PROVIDERS: PCP Internal Medicine; Visit Provider Student in an Organized Health Care Education/Training Program
DX: E04.2 Nontoxic multinodular goiter (principal)
CPT/HCPCS: 99213

== ENCOUNTER → 2025-02-21 13:27 | Outpatient (BNVA) | payer MEDICARE, OTHER, SELFPAY | PROVIDERS: PCP Internal Medicine; Visit Provider Student in an Organized Health Care Education/Training Program | DX: E04.2 Nontoxic multinodular goiter (principal) | CPT/HCPCS: 99212 ==

== ENCOUNTER 2025-02-23 07:45 | Outpatient (REF) | payer MEDICARE, OTHER, SELFPAY ==
[2025-02-23 10:11] LABS: Baso%MD 0.8 %; Eos%MD 0.8 %; Hematocrit 39.6 % (37.0-47.0); Hemoglobin 13.3 g/dl (12.0-16.0); Lymph%MD 34.1 %; Mean Corpuscular HGB Conc 33.6 g/dl (31.0-35.0); Mean Corpuscular Hemoglobin 30.2 pg (27.0-33.0); Mono%MD 11.6 %; Neut%MD 52.7 %; Platelet Count 202 X10*3/uL (160-400); Red Cell Distribution Width 13.6 % (11.0-16.0)
[2025-02-23 10:12] LABS: White Blood Count 1.3 X10*3/uL (4.8-10.8)
[2025-02-23 10:33] LABS: Alanine Aminotransferase 16 U/L (0-31); Albumin Level 4.1 g/dL (3.5-5.0); Alkaline Phosphatase 74 U/L (39-117); Anion Gap 11 (12-20); Aspartate Amino Transferase 22 U/L (5-31); Bilirubin Total 0.3 mg/dL (0.0-1.0); Blood Urea Nitrogen 16 mg/dL (9-16); Calcium 9.6 mg/dL (8.4-10.2); Carbon Dioxide 24 mmol/L (22-29); Chloride 111 mmol/L (96-108); Estimated Glomerular Filt Rate > 60; Glucose Random 111 mg/dL (60-115); Potassium 4.6 mmol/L (3.3-5.1); Sodium 141 mmol/L (135-145); Total Protein 7.5 g/dL (6.5-8.0)
[2025-02-23 10:39] LABS: Band Neutrophils Percent 1 % (3-5); Basophils Percent Manual 1 % (0-2); Lymphocytes Absolute Manual 0.5 X10*3/uL (1.2-4.9); Lymphocytes Percent Manual 37 % (20-40); Monocytes Absolute Manual 0.1 X10*3/uL (0.1-1.2); Monocytes Percent Manual 10 % (2-11); Neutrophils Absolute Manual 0.7 X10*3/uL (2.0-8.3); Neutrophils Percent Manual 51 % (45-73)
[2025-02-23 10:40] LABS: Lactate Dehydrogenase 199 U/L (122-220); Platelet Estimate NORMAL (NORMAL); Platelet Morphology Comment NORMAL; RBC Morphology NORMAL
== END 2025-02-23 07:46 | disposition home or self-care (01) ==
LOC: HO.HMGCLDS 07:45
PROVIDERS: PCP Internal Medicine; Visit Provider Internal Medicine Medical Oncology
DX: D70.9 Neutropenia, unspecified (principal)
CPT/HCPCS: 36415; 80053; 83615; 85007; 85027

== ENCOUNTER 2025-03-01 07:57 | Outpatient (AMB) | payer MEDICARE, OTHER, SELFPAY ==
--- NOTE | 2025-03-01 08:07 | A.OFFPC_ITS ---
Vital Signs 03/01/25 08:08 Height 5 ft Weight 173 lb BMI 33.8 BP 114/68 Blood Pressure Location Lt brachial Position Sitting Respiration 18 Pulse 76 Pulse Source Pulse Oximeter Temp 98.2 F Temp Source Oral Pulse Oximetry (%) 95 Oxygen Delivery Method Room Air Intake Visit Reasons: PE Intake Note: Pt is here today for PE. Pt needs a refill on her medications. Allergies penicillin V Allergy (Mild, Verified 03/01/25 08:09) rash Sulfa (Sulfonamide Antibiotics) Allergy (Mild, Verified 03/01/25 08:09) rash sulfacetamide Allergy (Mild, Verified 03/01/25 08:09) unknown Medication List - Last Reconciled 03/01/25 by Evelyn Rubio MD cholecalciferol (vitamin D3) 100 mcg PO DAILY estradiol 0.01%(0.1mg/gram) 0.1 appl vaginal DAILY lorazepam 0.5 mg PO DAILY PRN pravastatin 20 mg PO BEDTIME Tobacco use date assessed: 03/01/25 Fall risk assessment: 1 Fall in past year Last assessed Fall Risk: 03/01/25 Dental Screening Dental Screen Date: 12/12/24 HPI PE HPI Details Patient presents for physical. [facility] Medical History (Updated 03/01/25 @ 09:20 by Evelyn Rubio MD) Lung nodule, multiple Multinodular goiter Diverticulosis Tubular adenoma Hyperlipidemia Normal Pap smear Mammogram normal Annual physical exam Nephrolithiasis Atherosclerosis of both carotid arteries Parotitis Anxiety Neutropenia Surgical History (Updated 03/01/25 @ 09:12 by Evelyn Rubio MD) H/O oral surgery S/P thyroid surgery H/O colonoscopy Family History Father Hypertension Pancreatic cancer Mother No problems noted. Social History Household Members: Spouse Housing: House Are you a primary rn palliative care to a significant other at home: Yes Do you presently have visiting nurse or other home services: No Patient Tobacco Use Status: Former Tobacco user e-Cigarette/Vaping Use: Never Used service: No Current occupational status: employed Cognitive needs: No Hearing needs: No Vision needs: Yes Questionnaire Thrive Questionnaire Date Thrive assessed: 12/12/24 I am a: Patient What is your living situation today?: I have a steady place to live Within the past 12 months, did the food you bought not last and you didn't have the money to get more?: Never true Within the past 12 months, did you worry whether your food would run out before you got money to buy more?: Never true Do you have trouble paying for medicines?: No Do you have trouble getting transportation to medical appointments?: No Do you have trouble paying your heating and electricity bill?: No Do you have trouble taking care of your child, family member or friend?: No Do you have trouble with day-to-day activities such as bathing, preparing meals, shopping, managing finances, etc.?: No Are you currently unemployed and looking for a job?: Yes Are you interested in more education?: No Please select the resources that you would like help with: None Currently or been in a relationship where the following occur: No concerns reported THRIVE Score: 0 RADHA-7 AMB Questionnaire RADHA-7 Date RADHA - 7 assessed: 12/12/24 Source: Developed by Drs. Michael Figueroa, Holly Azevedo, Jerrod Paul and colleagues, with an educational pascale from [employer]™. Review of Systems Const All systems reviewed & are unremarkable except as noted in HPI and below Eyes Reports no additional complaints ENT Reports no additional complaints Card Reports no additional complaints Resp Reports no additional complaints GI Reports no additional complaints Reports no additional complaints Physical exam (Primary Care) Vital Signs: Last Vital Signs Temp 98.2 F 03/01/25 08:08 Pulse 76 03/01/25 08:08 Resp 18 03/01/25 08:08 BP 114/68 03/01/25 08:08 Pulse Ox 95 03/01/25 08:08 Oxygen Delivery Method Room Air 03/01/25 08:08 BMI result Body Mass Index 33.8 Tobacco/Smoking Status: Tobacco use Status Tobacco use date assessed 03/01/25 03/01/25 08:14 Patient Tobacco Use Status Former Tobacco user 03/01/25 08:09 e-Cigarette/Vaping Use Never Used 03/01/25 08:09 Thrive Assessment: Date of Thrive Assessment Date Thrive assessed 12/12/24 03/01/25 08:09 Currently or been in a relationship where the following occur: No concerns re ported Const General: no acute distress HENMT Head: Yes normal to inspection Ears: hearing grossly normal bilaterally Face and sinus: Yes normal facial exam Teeth and gingiva: dentition normal Eyes General: appearance normal, both eyes and all related structures Neck Neck: Yes no lymphadenopathy and Yes supple Resp Effort & Inspection: normal respiratory effort Auscultation: clear to auscultation bilaterally Cardio Rhythm: regular rhythm Heart sounds: S1 normal heart sound present and S2 normal heart sound present GI Inspection: Yes normal to inspection Palpation (GI): Soft to palpation Percussion: Yes normal to percussion Auscultation: normal bowel sounds Coding Level of Care Code Est Pt Prev Care >65y(83372) Diagnoses Lung nodule, multiple R91.8 Neutropenia D70.9 Annual physical exam Z00.00 Nephrolithiasis N20.0 Assessment & Plan Assessment & Plan (1) Lung nodule, multiple: Comment: CT 04/2024 RLL 0.7 cm mixed attenuation nodule surrounded by ground-glass opacity new from 2022, left lower lobe 0.2 cm nodule, left lower lobe pneumonitis, centrilobular emphysema. Patient established with Dr. Lobo but not seen since 08/2023 Code(s): R91.8 - Other nonspecific abnormal finding of lung field Category: Medical Plan: Obtain repeat CT of the chest (2) Neutropenia: Comment: Chronic stable for 15 yrs, negative hematology evaluation in 2014, negative bone biopsy 02/2025: suboptimal sample, maturing trilineage hematopoiesis no dysplasia no infiltrate, follow-up with [facility] hematology Code(s): D70.9 - Neutropenia, unspecified Category: Medical Plan: Follow-up with Hematology (3) Annual physical exam: Code(s): Z00.00 - Encounter for general adult medical examination without abnormal findings Category: Medical Plan: Well-balanced diet regular physical activity discussed with the patient she is up-to-date with the mammogram colonoscopy (4) Nephrolithiasis: Comment: 05/2021, [facility] , 3 stones in Nov Code(s): N20.0 - Calculus of kidney Category: Medical Plan: Follow-up with urology Orders: Orders CT chest wo con - High Res Today R91.8 - Other nonspecific abnormal finding of lung field Medications: Refilled pravastatin 20 mg PO BEDTIME 90 tabs 3RF lorazepam 0.5 mg PO DAILY PRN 10 tabs 0RF anxiety
[2025-03-01 08:08] VITALS: BP 114/68; PULSE 76; RESP 18; TEMP 36.8; O2SAT 95; BMI 33.8
== END 2025-03-01 08:53 | disposition home or self-care (01) ==
LOC: HO.HMCC 07:58
PROVIDERS: PCP Internal Medicine; Visit Provider Internal Medicine
DX: Z00.00 Encounter for general adult medical examination without abnormal findings (principal); R91.8 Other nonspecific abnormal finding of lung field; D70.9 Neutropenia, unspecified; N20.0 Calculus of kidney

== ENCOUNTER → 2025-03-01 07:57 | Outpatient (BNVA) | payer MEDICARE, OTHER, SELFPAY | PROVIDERS: PCP Internal Medicine; Visit Provider Internal Medicine | DX: Z00.00 Encounter for general adult medical examination without abnormal findings (principal); R91.8 Other nonspecific abnormal finding of lung field; D70.9 Neutropenia, unspecified; N20.0 Calculus of kidney | CPT/HCPCS: 99397 ==

== ENCOUNTER 2025-03-12 07:16 | Outpatient (RCR) | payer MEDICARE, OTHER, SELFPAY ==
--- NOTE | 2024-12-27 11:52 | MHC.PT.EP ---
[facility] [place] Office [place] Office [place] Office [address] He Brewer [address] [phone] F: [phone] F: [phone] F: [phone] F: [phone] Physical Therapy Plan of Care Date of Evaluation: 12/26/24 Date of Surgery: Diagnosis: PT eval and treat; LOW back pain signed by Dr. 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 Pt sx exacerbated with fall on ice hitting head>[facility] [place] [place] 12/04/23> CT scan (-)> PCP follow up> referred to PT. Pt exhibits severe OA L Hip per PCP notes 11/28 reports confidence for squatting, floor activity, and goal of getting back into exercise activity/goals. She reports since time of initial PT referral was placed her back has improved. She reports she would like to gain some exercises to help her with pain when it is present. She reports walking for exercise at times but has not been active through the winter months. Pt will benefit from PT, requesting to attend PT once a week due to work schedule/availability. Post initial evaluation we discussed goals of PT, findings of evaluation, and indications for treatment. Frequency and Duration: The patient will be seen 1x/week x 4-6 weeks Short Term Goals: 1. Implement HEP program and self-care. 2. Pt will demonstrate increased strength hip abd 4+/5 B. 3. Pt will demonstrate good eccentric control for functional transfers. 4. Increase strength hip extensors to 4+/5. 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 I HEP program for body program/self care. 2. Strength hip ext 5/5. 3. Pt will demonstrate functional squat 4. L hip abd 5/5. 5. Demonstrate good carryover of floor recovery program. Treatment Plan: Modalities to reduce pain, spasms and effusion. Manual therapy to restore motion and function. Therapeutic exercise to improve strength and flexibility. Neuromuscular re-education for posture and balance. Therapeutic activities to return to functional activities of daily living. Electronically signed by: Amira Guzman PT, DPT Please sign and return to therapist. Thank you for your referral.
== END 2025-04-24 07:31 | disposition home or self-care (01) ==
LOC: HO.PTS 07:16
PROVIDERS: Visit Provider Internal Medicine
DX: M54.50 Low back pain, unspecified (principal)
CPT/HCPCS: 97110; 97161; 97530; 97535

== ENCOUNTER 2025-05-07 10:24 | Outpatient (AMB) | payer MEDICARE, OTHER, SELFPAY ==
--- OUTSIDE RECORDS SUMMARY | 2025-05-07 11:03 | XMS_ITS | Encounter Summary ---
Author Organization [facility] Address [address] [place] [address] Care Team Providers Care Sales Account Leader Name Role Phone Physician, Pcp Unknown Primary Care Provider Brigida vailable Encounter Details Date Type Department Care Team (Late st Contact Info) Description 04/12/2025 Lab Requisition [facility] - Main Lab [address] [facility] [place] [address] Joshua Corbin PA [address] [id number] Calculus of kidney Social History Tobacco Use Types Packs/Day Years Used Date Smoking Tobacco: Never Assessed Comments Unknown Sex and Gender Information Value Date Recorded Sex Assigned at Not on file Legal Sex Female 11:16 PM EST Gender Identity Not on file Sexual Orientation Not on file documented as of this encounter Plan of Treatment Not on file documented as of this encounter Procedures Procedure Name Priority Date/Time Associated Diagnosis Comments CBC WITH AUTO DIFFERENTIAL Routine 04/12/2025 12:00 AM EDT Calculus of kidney CBC AND DIFFERENTIAL Routine 04/12/2025 12:00 AM EDT Calculus of kidney documented in this encounter Results * (ABNORMAL) CBC auto differential (04/12/2025 12:00 AM EDT) WBC 2.1(L) 4.8 - 10.8 K/[facility] LAB HEMETOLOGY METHOD 04/12/2025 7:51 PM EDT [facility] RBC 4.60 3.80 - 4.80 M/[facility] LAB HEMETOLOGY METHOD 04/12/2025 7:51 PM EDT [facility] Hemoglobin 13.4 11.5 - 16.0 g/dL LAB HEMETOLOGY METHOD [facility] Hematocrit 40.6 35.0 - 47.0 % LAB HEMETOLOGY METHOD 04/12/2025 7:51 [facility] MCV 88.8 79.0 - 98.0 FL LAB HEMETOLOGY METHOD 04/12/2025 7:51 [facility] MCH 29.3 27.0 - 32.0 pcg LAB HEMETOLOGY METHOD 04/12/2025 7:51 [facility] MCHC 33.0 32.0 - 37.0 g/dL LAB HEMETOLOGY METHOD 04/12/2025 7:51 PM [facility] RDW 13.3 11.0 - 15.0 % LAB HEMETOLOGY METHOD 04/12/2025 7:51 PM [facility] Platelets 223 130 - 400 K/mcL LAB HEMETOLOGY METHOD 04/12/2025 7:51 PM [facility] MPV 10.1 7.0 - 11.0 FL LAB HEMETOLOGY METHOD 04/12/2025 7:51 PM [facility] NRBC 0.0 <1.0 % LAB HEMETOLOGY METHOD 04/12/2025 7:51 PM [facility] NRBC Absolute 0.00 <0.10 K/mcL LAB HEMETOLOGY METHOD 04/12/2025 7:51 PM [facility] Neutrophils Relative 52.3 % LAB HEMETOLOGY METHOD 04/12/2025 7:51 PM [facility] Lymphocytes Relative 25.2 % LAB HEMETOLOGY METHOD 04/12/2025 7:51 PM [facility] Monocytes Relative 21.0 % LAB HEMETOLOGY METHOD 04/12/2025 7:51 PM EDT [facility] Eosinophils Relative 0.5 % LAB HEMETOLOGY METHOD 04/12/2025 7:51 PM EDT [facility] Basophils Relative 0.5 % LAB HEMETOLOGY METHOD 04/12/2025 7:51 PM EDT [facility] Immature Granulocytes Relative 0.5 % LAB HEMETOLOGY METHOD 04/12/2025 7:51 PM EDT [facility] Neutrophils Absolute 1.12(L) 1.50 - 7.00 K/mcL LAB HEMETOLOGY METHOD 04/12/2025 7:51 PM EDT [facility] Lymphocytes Absolute 0.54(L) 1.00 - 5.00 K/mcL LAB HEMETOLOGY METHOD 04/12/2025 7:51 PM EDT [facility] Monocytes Absolute 0.45 0.20 - 1.00 K/mcL LAB HEMETOLOGY METHOD 04/12/2025 7:51 PM EDT [facility] Eosinophils Absolute 0.01 0.00 - 0.50 K/mcL LAB HEMETOLOGY METHOD 04/12/2025 7:51 PM EDT [facility] Basophils Absolute 0.01 0.00 - 0.20 K/mcL LAB HEMETOLOGY METHOD 04/12/2025 7:51 PM EDT [facility] Immature Granulocytes Absolute 0.01 0.00 - 0.03 K/mcL LAB HEMETOLOGY METHOD 04/12/2025 7:51 PM EDT [facility] Blood Venous blood specimen / Unknown 04/12/2025 04/12/2025 7:19 PM EDT us Joshua ANDERSON LAB BLOOD ORDERABLES Final Resul t [facility] [address] [place] [address], documented in this encounter Visit Diagnoses Diagnosis Calculus of kidney documented in this encounter Care Teams Sales Account Leader Relationship Specialty Start Date End Date Physician, Pcp Unknown PCP - General 04/12/25 documented as of this encounter
[2025-05-07 11:21] VITALS: BP 104/60; PULSE 76; TEMP 36.6; O2SAT 96; BMI 32.2
--- NOTE | 2025-05-07 11:21 | AM.OFFWIN_ITS ---
Intake Vital Signs 05/07/25 11:21 05/07/25 11:28 Height 5 ft Weight 165 lb BMI 32.2 BP 104/60 110/60 Blood Pressure Location Rt brachial Lt brachial Position Sitting Sitting Pulse 76 Pulse Source Pulse Oximeter Temp 97.8 F Temp Source Oral Pulse Oximetry (%) 96 Oxygen Delivery Method Room Air Intake Visit Reasons: EP Heat Rash Intake Note: presents with stinging/burning red rash to thighs, abdomen including left lower, chest, bilateral wrists Patient Tobacco Use Status: Former Tobacco user Allergies penicillin V Allergy (Mild, Verified 05/07/25 11:23) rash Sulfa (Sulfonamide Antibiotics) Allergy (Mild, Verified 05/07/25 11:23) rash sulfacetamide Allergy (Mild, Verified 05/07/25 11:23) unknown Do you need a note to return to daycare/school/sports/work: No HPI HPI Comments History of Present Illness Details History - The patient is a 70-year-old female pr esenting with a rash with pruritus and burning sensation. - The rash began approximately one week ago, initially presenting as small bumps that progressed to larger bumps and a rash. - The patient has been using over-the-co unter cortisone cream and cold compresses, which provide temporary relief. - The rash is described as itchy and bur gisela, with a stinging sensation, and the patient is trying to avoid scratching it. - The patient reports being very sensiti ve to medications, experiencing heightened side effects even with small doses. - She denies new soaps, detergents, medi cations, foods, lotions, clothes, bug bites, or other exposures. Physical Exam General: Cooperative, healthy appearing, comfortable, no acute distress and well developed Orientation: Patient oriented x3 Respiratory: Normal respiratory effort and able to speak in complete sentences. Clear to auscultation bilaterally. No w/r/r noted. Cardiovascular: RRR, no m/r/g noted. Normal S1 and S2 Skin: Multiple diffuse maculopapular rash noted on the arms, legs, abdomen. Dry, not flaking, no discharge and blanchable. Patient was informed and verbally consented to the use of an ambient scribe for clinic note documentation during this visit [facility] Medical History (Updated 05/01/25 @ 09:20 by Wendy Ratliff MD) Lung nodule, multiple Multinodular goiter Diverticulosis Tubular adenoma Hyperlipidemia Normal Pap smear Mammogram normal Annual physical exam Nephrolithiasis Atherosclerosis of both carotid arteries Parotitis Anxiety Neutropenia Surgical History H/O oral surgery S/P thyroid surgery H/O colonoscopy Family History Father Hypertension Pancreatic cancer Mother No problems noted. Social History Household Members: Spouse Housing: House Are you a primary md do resident urgent care to a significant other at home: Yes Do you presently have visiting nurse or other home services: No Patient Tobacco Use Status: Former Tobacco user e-Cigarette/Vaping Use: Never Used service: No Current occupational status: employed Cognitive needs: No Hearing needs: No Vision needs: Yes Review of Systems Const All systems reviewed & are unremarkable except as noted in HPI and below Physical Exam Vital Signs: Last Vital Signs Temp 97.8 F 05/07/25 11:21 Pulse 76 05/07/25 11:21 BP 110/60 05/07/25 11:28 Pulse Ox 96 05/07/25 11:21 Oxygen Delivery Method Room Air 05/07/25 11:21 BMI result Body Mass Index 32.2 Assessment & Plan Assessment & Plan (1) Rash: Code(s): R21 - Rash and other nonspecific skin eruption Plan Most likely contact dermatitis vs allergic reaction vs heat rash Plan - Prescribed a five-day course of prednisone to reduce inflammation and itching. - Advised to continue using cortisone cream on the rash for symptomatic relief. - Discussed potential side effects of prednisone, including increased appetite and jitteriness, and advised to consult with a pharmacist if concerned. - Instructed that prednisone can be discontinued if adverse reactions occur, given the short course prescribed. Medications: New prednisone 40 mg (2 x 20 mg) PO DAILY 10 tabs 0RF 5 days triamcinolone acetonide 0.5% do not exceed use greater than 14 days 1 appl topical BID 15 grams 0RF Coding Level of Care Code Est Pt Level 3 (89009) Diagnoses Rash R21
[2025-05-07 11:28] VITALS: BP 110/60
== END 2025-05-07 12:53 | disposition home or self-care (01) ==
PROVIDERS: PCP Internal Medicine; Visit Provider Physician Assistant Medical
DX: R21 Rash and other nonspecific skin eruption (principal)

== ENCOUNTER → 2025-05-07 10:24 | Outpatient (BNVA) | payer MEDICARE, OTHER, SELFPAY | PROVIDERS: PCP Internal Medicine; Visit Provider Physician Assistant Medical | DX: R21 Rash and other nonspecific skin eruption (principal) | CPT/HCPCS: 99212 ==

== ENCOUNTER 2025-05-09 07:37 | Outpatient (REF) | payer MEDICARE, OTHER, SELFPAY ==
--- NOTE | ~2025-05-09 | CT_ITS ---
CLINICAL HISTORY: R91.8 - Other nonspecific abnormal finding of lung field CT chest without contrast Comparison: CT/SR - CT CHEST WITHOUT IV CONTRAST - 05/02/24 07:44 EDT Findings: The heart size is normal. Calcification of the coronary vasculature. The visualized thyroid and mediastinum are unremarkable. Previously seen right lower lobe nodule posterolaterally demonstrates decreased, ground-glass density, measuring 7 mm ( image 81). Remaining pulmonary nodules are unchanged. There is new mild basilar predominant multifocal ground-glass pulmonary opacity. The visualized upper abdomen is unremarkable. The bones are intact. IMPRESSION: 1. Bilateral ground-glass pulmonary densities, suggestive of pneumonitis or bronchiolitis. 2. Stable pulmonary nodules. 3. Coronary artery disease. This document has been electronically signed by: Hiren Brown MD on 05/09/2025 13:58:17
--- OUTSIDE RECORDS SUMMARY | 2025-05-09 07:40 | XMS_ITS | Encounter Summary ---
Author Organization [facility] Address [address] [place] [address] Care Team Providers Care Hospital Insurance Clerk Name Role Phone Physician, Pcp Unknown Primary Care Provider Brigida vailable Encounter Details Date Type Department Care Team (Late st Contact Info) Description 04/12/2025 Lab Requisition [facility] - Main Lab [address] [facility] [place] [address] Joshua Corbin PA [address] [phone] Calculus of kidney Social History [...] AM EDT) WBC 2.1(L) 4.8 - 10.8 K/[facility] LAB HEMETOLOGY METHOD 04/12/2025 7:51 PM EDT [facility] LAB RBC 4.60 3.80 - 4.80 M/[facility] LAB HEMETOLOGY METHOD 04/12/2025 7:51 PM EDT [facility] LAB Hemoglobin 13.4 11.5 - 16.0 g/dL LAB HEM[facility]OLOGY [facility] Hematocrit 40.6 35.0 - 47.0 % LAB HEMETOLOGY METHOD 04[facility]12[facility]2025 7[facility] MCV 88.8 79.0 - 98.0 FL LAB HEMETOLOGY METHOD 04/12/2025 7:[facility] MCH 29.3 27.0 - 32.0 pcg LAB HEMETOLOGY METHOD 04/12/2025 7:[facility] MCHC 33.0 32.0 - 37.0 g/dL LAB HEMETOLOGY METHOD 04/12/2025 7:51 PM [facility] LAB RDW 13.3 11.0 - 15.0 % LAB HEMETOLOGY METHOD 04/12/2025 7:[facility] Platelets 223 130 - 400 K/mcL LAB HEMETOLOGY METHOD 04/12/2025 7:51 PM [facility] LAB MPV 10.1 7.0 - 11.0 FL LAB HEMETOLOGY METHOD 04/12/2025 7:51 PM [facility] LAB NRBC 0.0 <1.0 % LAB HEMETOLOGY METHOD 04/12/2025 7:[facility] NRBC Absolute 0.00 <0.10 K/mcL LAB HEMETOLOGY METHOD 04/12/2025 7:[facility] Neutrophils Relative 52.3 % LAB HEMETOLOGY METHOD 04/12/2025 7:[facility] Lymphocytes Relative 25.2 % LAB HEMETOLOGY METHOD 04/12/2025 7:[facility] Monocytes Relative 21.0 % LAB HEMETOLOGY METHOD 04/12/2025 7:51 PM EDT [facility] LAB Eosinophils Relative 0.5 % LAB HEMETOLOGY METHOD 04/12/2025 7:51 PM EDT [facility] LAB Basophils Relative 0.5 % LAB HEMETOLOGY METHOD 04/12/2025 7:51 PM EDT [facility] Immature Granulocytes Relative 0.5 % LAB HEMETOLOGY METHOD 04/12/2025 7:51 PM EDT [facility] LAB Neutrophils Absolute 1.12(L) 1.50 - 7.00 K/mcL LAB HEMETOLOGY METHOD 04/12/2025 7:51 PM EDT [facility] LAB Lymphocytes Absolute 0.54(L) 1.00 - 5.00 K/mcL LAB HEMETOLOGY METHOD 04/12/2025 7:51 PM EDT [facility] LAB Monocytes Absolute 0.45 0.20 - 1.00 K/mcL LAB HEMETOLOGY METHOD 04/12/2025 7:51 PM EDT [facility] Eosinophils Absolute 0.01 0.00 - 0.50 K/mcL LAB HEMETOLOGY METHOD 04/12/2025 7:51 PM EDT [facility] Basophils Absolute 0.01 0.00 - 0.20 K/mcL LAB HEMETOLOGY METHOD 04/12/2025 7:51 PM EDT [facility] Immature Granulocytes Absolute 0.01 0.00 - 0.03 K/mcL LAB HEMETOLOGY METHOD 04/12/2025 7:51 PM EDT [facility] Blood Venous blood specimen / Unknown 04/12/2025 04/12/2025 7:19 PM EDT us Joshua ANDERSON LAB BLOOD ORDERABLES Final Resul t [facility] [address] [place] [address], documented in this encounter Visit Diagnoses Diagnosis Calculus of kidney documented in this encounter Care Teams Hospital Insurance Clerk Relationship Specialty Start Date End Date Physician, Pcp Unknown PCP - General 04/12/25 documented as of this encounter
== END 2025-05-09 07:38 | disposition home or self-care (01) ==
LOC: HO.CT 07:37
PROVIDERS: PCP Internal Medicine; Visit Provider Internal Medicine
DX: R91.1 Solitary pulmonary nodule (principal); Z91.89 Other specified personal risk factors, not elsewhere classified
CPT/HCPCS: 71250

== ENCOUNTER → 2025-05-09 07:39 | Outpatient (BNV) | payer MEDICARE, OTHER, SELFPAY | PROVIDERS: PCP Internal Medicine; Visit Provider Radiology Diagnostic Radiology | DX: I25.10 Atherosclerotic heart disease of native coronary artery without angina pectoris (principal); R91.8 Other nonspecific abnormal finding of lung field | CPT/HCPCS: 71250 ==

== ENCOUNTER 2025-05-14 08:29 | Outpatient (AMB) | payer MEDICARE, OTHER, SELFPAY ==
--- OUTSIDE RECORDS SUMMARY | 2025-05-14 08:47 | XMS_ITS | Encounter Summary ---
Author Organization [facility] Address [address] [place] [address] Care Team Providers Care Agricultural Purchasing Agent Name Role Phone Physician, Pcp Unknown Primary Care Provider Brigida vailable Encounter Details Date Type Department Care Team (Late st Contact Info) Description 04/12/2025 Lab Requisition [facility] - Main Lab [address] [facility] [place] [address] Joshua Corbin PA [address] [phone] Calculus of kidney Social History [...] AM EDT) WBC 2.1(L) 4.8 - 10.8 K/[facility] LAB HEMETOLOGY METHOD 04/12/2025 7:51 PM EDT [facility] LAB RBC 4.60 3.80 - 4.80 M/[facility] LAB HEMETOLOGY METHOD 04/12/2025 7:51 PM EDT [facility] LAB Hemoglobin 13.4 11.5 - 16.0 g/dL LAB HEMETOLOGY METHOD [facility]/12[facility]25 [facility] Hematocrit 40.6 35.0 - 47.0 % LAB HEMETOLOGY METHOD 04/12/2025 7[facility] MCV 88.8 79.0 - 98.0 FL LAB HEMETOLOGY METHOD 04/12/2025 7:[facility] MCH 29.3 27.0 - 32.0 pcg LAB HEMETOLOGY METHOD 04/12/2025 7:[facility] MCHC 33.0 32.0 - 37.0 g/dL LAB HEMETOLOGY METHOD 04/12/2025 7:[address] [facility] RDW 13.3 11.0 - 15.0 % LAB HEMETOLOGY METHOD 04/12/2025 7:[facility] Platelets 223 130 - 400 K/mcL LAB HEMETOLOGY METHOD 04/12/2025 7:[address] [facility] LAB MPV 10.1 7.0 - 11.0 FL LAB HEMETOLOGY METHOD 04/12/2025 7:[address] [facility] NRBC 0.0 <1.0 % LAB HEMETOLOGY METHOD 04/12/2025 7:[facility] NRBC Absolute 0.00 <0.10 K/mcL LAB HEMETOLOGY METHOD 04/12/2025 7:[facility] Neutrophils Relative 52.3 % LAB HEMETOLOGY METHOD 04/12/2025 7:[facility] Lymphocytes Relative 25.2 % LAB HEMETOLOGY METHOD 04/12/2025 7:[facility] Monocytes Relative 21.0 % LAB HEMETOLOGY METHOD 04/12/2025 7:51 PM EDT [facility] Eosinophils Relative 0.5 % LAB HEMETOLOGY METHOD 04/12/2025 7:51 PM EDT [facility] Basophils Relative 0.5 % LAB HEMETOLOGY METHOD 04/12/2025 7:51 PM EDT [facility] Immature Granulocytes Relative 0.5 % LAB HEMETOLOGY METHOD 04/12/2025 7:51 PM EDT [facility] LAB Neutrophils Absolute 1.12(L) 1.50 - 7.00 K/mcL LAB HEMETOLOGY METHOD 04/12/2025 7:51 PM EDT [facility] LAB Lymphocytes Absolute 0.54(L) 1.00 - 5.00 K/mcL LAB HEMETOLOGY METHOD 04/12/2025 7:51 PM EDT [facility] Monocytes Absolute 0.45 0.20 - 1.00 K/mcL LAB HEMETOLOGY METHOD 04/12/2025 7:51 PM EDT [facility] Eosinophils Absolute 0.01 0.00 - 0.50 K/mcL LAB HEMETOLOGY METHOD 04/12/2025 7:51 PM EDT [facility] Basophils Absolute 0.01 0.00 - 0.20 K/mcL LAB HEMETOLOGY METHOD 04/12/2025 7:51 PM EDT [facility] Immature Granulocytes Absolute 0.01 0.00 - 0.03 K/mcL LAB HEMETOLOGY METHOD 04/12/2025 7:51 PM EDT [facility] Blood Venous blood specimen / Unknown 04/12/2025 04/12/2025 7:19 PM EDT us Joshua ANDERSON LAB BLOOD ORDERABLES Final Resul t [facility] [address] [place] [address], documented in this encounter Visit Diagnoses Diagnosis Calculus of kidney documented in this encounter Care Teams Agricultural Purchasing Agent Relationship Specialty Start Date End Date Physician, Pcp Unknown PCP - General 04/12/25 documented as of this encounter
[2025-05-14 09:13] VITALS: BP 138/72; PULSE 60; TEMP 36.7; O2SAT 98; BMI 32.4
--- NOTE | 2025-05-14 09:13 | AM.OFFWIN_ITS ---
Intake Vital Signs 05/14/25 09:13 Height 5 ft Weight 166 lb 2 oz BMI 32.4 BP 138/72 Blood Pressure Location Rt brachial Position Sitting Pulse 60 Pulse Source Pulse Oximeter Temp 98.1 F Temp Source Oral Pulse Oximetry (%) 98 Oxygen Delivery Method Room Air Intake Visit Reasons: EP Kidney stone? Kidney pain, sweats, rash Patient Tobacco Use Status: Former Tobacco user Executive Vice President Required: No Is last menstrual period known: No Post menopausal: Yes Patient : No Allergies penicillin V Allergy (Mild, Verified 05/14/25 09:18) rash Sulfa (Sulfonamide Antibiotics) Allergy (Mild, Verified 05/14/25 09:18) rash sulfacetamide Allergy (Mild, Verified 05/14/25 09:18) unknown Do you need a note to return to daycare/school/sports/work: No HPI HPI Comments History of Present Illness Details 70 y/o Female patient who presents to [facility] walk in clinic with c/o Rash on Lower extremities and torso. Reports rash began approximately one week ago, initially presenting as small bumps that progressed to larger bumps and a rash. Reports h/o Heat Rash and usually gets it during Hot weather. Describes the rash as very itchy and burning, with a stinging sensation, and she is trying to avoid scratching it. Denies new soaps, detergents, medications, foods, lotions, clothes, bug bites, or other exposures. She was seen here last week 05/07 for similar issue - she was prescribed Steroid cream and prednisone. Report great improvement on Rash, but still has some left on Lower legs and abdomen. Patient for refill on cream. She has been using [id number] cortisone cream and cold compresses, which provide temporary relief. Pt c/o Right sided flank pain since this morning. Denies Nausea, vomiting, fevers or chills. She does have H/o Kidney stones and managed by Urology. [facility] Medical History (Updated 05/14/25 @ 10:26 by Verito Pandey NP) Right flank pain Rash and nonspecific skin eruption Lung nodule, multiple Multinodular goiter Diverticulosis Tubular adenoma Hyperlipidemia Normal Pap smear Mammogram normal Annual physical exam Nephrolithiasis Atherosclerosis of both carotid arteries Parotitis Anxiety Neutropenia Surgical History H/O oral surgery S/P thyroid surgery H/O colonoscopy Family History Father Hypertension Pancreatic cancer Mother No problems noted. Social History Household Members: Spouse Housing: House Are you a primary morning caregiver to a significant other at home: Yes Do you presently have visiting nurse or other home services: No Patient Tobacco Use Status: Former Tobacco user e-Cigarette/Vaping Use: Never Used Patient : No service: No Current occupational status: employed Cognitive needs: No Hearing needs: No Vision needs: Yes Review of Systems Const All systems reviewed & are unremarkable except as noted in HPI and below Physical Exam Vital Signs: Last Vital Signs Temp 98.1 F 05/14/25 09:13 Pulse 60 05/14/25 09:13 BP 138/72 05/14/25 09:13 Pulse Ox 98 05/14/25 09:13 Oxygen Delivery Method Room Air 05/14/25 09:13 BMI result Body Mass Index 32.4 Const General: no acute distress Nutritional Appearance: obese Orientation/consciousness: patient oriented x3 Skin Other: Multiple diffuse Maculo-papular rash noted on legs, and abdomen. Dry, not flaking, no discharge. Neuro General: patient oriented x3, gait normal and moves all extremities Psych Speech and movement: Normal speech and movement present Assessment & Plan Assessment & Plan (1) Rash and nonspecific skin eruption: Code(s): R21 - Rash and other nonspecific skin eruption Plan: Continue using Topical Steroid cream for additional 7 days. Seven 7 on and 7 days off. Sent a new refill Continue using cold compress. (2) Right flank pain: Code(s): R10.9 - Unspecified abdominal pain Plan: Urinalysis negative H/o Kidney stone - Managed by Urology. Medications: New triamcinolone acetonide 0.5% 1 appl topical BID 15 grams 1RF 7 days R21 - Rash and other nonspecific skin eruption Coding Level of Care Code Est Pt Level 4 (50397) Diagnoses Rash and nonspecific skin eruption R21 Right flank pain R10.9 Time Spent (min) 20
== END 2025-05-14 11:37 | disposition home or self-care (01) ==
PROVIDERS: PCP Internal Medicine; Visit Provider Nurse Practitioner Family
DX: R21 Rash and other nonspecific skin eruption (principal); R10.9 Unspecified abdominal pain; Z13.9 Encounter for screening, unspecified

== ENCOUNTER → 2025-05-14 08:29 | Outpatient (BNVA) | payer MEDICARE, OTHER, SELFPAY | PROVIDERS: PCP Internal Medicine; Visit Provider Nurse Practitioner Family | DX: R21 Rash and other nonspecific skin eruption (principal); R10.9 Unspecified abdominal pain | CPT/HCPCS: 81003; 99212 ==

== ENCOUNTER 2025-07-12 15:13 | Outpatient (AMB) | payer MEDICARE, OTHER, SELFPAY ==
--- NOTE | 2025-07-12 15:16 | MHC.OFFVIS ---
Vital Signs 07/12/25 15:18 Height 5 ft Weight 166 lb BMI 32.4 BP 118/62 Blood Pressure Location Lt brachial Position Sitting Pulse 75 Pulse Source Pulse Oximeter Pulse Oximetry (%) 96 Oxygen Delivery Method Room Air Intake Visit Reasons: Pulmonary Nodules Allergies penicillin V Allergy (Mild, Verified 07/12/25 15:22) rash Sulfa (Sulfonamide Antibiotics) Allergy (Mild, Verified 07/12/25 15:22) rash sulfacetamide Allergy (Mild, Verified 07/12/25 15:22) unknown HPI HPI Pulmonary Nodules: Details: 70-year-old lady, minimal smoker of tobacco products, smoked marijuana for approximately 7 year, and had significant exposure to secondhand smoke previously seen for pulmonary nodules dust for paroxysmally 2 years, now returns after recent CT shows stable pulmonary nodules, but also bibasilar ground-glass densities. Patient denies any pulmonary related concerns or complaints at this time. [facility] Medical History (Updated 07/12/25 @ 16:23 by Elijah Lobo MD) Right flank pain Rash and nonspecific skin eruption Lung nodule, multiple Multinodular goiter Diverticulosis Tubular adenoma Hyperlipidemia Normal Pap smear Mammogram normal Annual physical exam Nephrolithiasis Atherosclerosis of both carotid arteries Parotitis Anxiety Neutropenia Surgical History H/O oral surgery S/P thyroid surgery H/O colonoscopy Family History Father Hypertension Pancreatic cancer Mother No problems noted. Social History Household Members: Spouse Housing: House Are you a primary plant health care technician to a significant other at home: Yes Do you presently have visiting nurse or other home services: No Patient Tobacco Use Status: Former Tobacco user e-Cigarette/Vaping Use: Never Used service: No Current occupational status: employed Cognitive needs: No Hearing needs: No Vision needs: Yes Review of Systems Const Denies daytime sleepiness, Denies excessive sweating, Denies fatigue, Denies fever(s), Denies lethargy, Denies malaise, Denies night sweats, Denies snoring and Denies weight loss Eyes Denies blurry vision and Denies itchy eyes ENT Denies nasal congestion, Denies post nasal drip, Denies sinus pain, Denies sinus pressure and Denies other ( Thrush) Card Denies chest pain, Denies pedal edema, Denies dyspnea, Denies orthopnea and Denies paroxysmal nocturnal dyspnea Resp Denies cough, Denies hemoptysis, Denies excessive phlegm production, Denies dyspnea, Denies snoring and Denies wheezing GI Denies abdominal pain and Denies heartburn Musc Denies myalgias, Denies arthralgias and Denies joint swelling Skin/Breast Denies rash Neuro Denies memory loss and Denies seizure-like activity Psych Denies abnormal sleep pattern, Denies anxiety and Denies memory loss Endo Denies excessive sweating, Denies fatigue and Denies heat intolerance Mookie/Lymph Denies easy bruising Aller/Immun Denies itchy eyes, Denies seasonal rhinorrhea and Denies wheezing Physical Exam Vital Signs: Last Vital Signs Pulse 75 07/12/25 15:18 BP 118/62 07/12/25 15:18 Pulse Ox 96 07/12/25 15:18 Oxygen Delivery Method Room Air 07/12/25 15:18 BMI result Body Mass Index 32.4 Const General: no acute distress and alert Nutritional Appearance: not obese Orientation/consciousness: Other orientation findings ( oriented) HEENT Head: Yes atraumatic Eyes General: appearance normal, both eyes and all related structures Sclerae: sclerae normal EOM: EOMs intact bilaterally Neck Neck: Yes supple Lymphatic: no lymphadenopathy noted Resp Effort & Inspection: normal respiratory effort and no use of accessory muscles Auscultation: clear to auscultation bilaterally Cardio Rate: regular rate Rhythm: regular rhythm Heart sounds: no gallops, no murmurs and no rubs Skin General skin exam: other ( warm) Extrem General: No clubbing, No cyanosis and No edema Assessment & Plan Assessment & Plan (1) Abnormal CT scan, chest: Code(s): R93.89 - Abnormal findings on diagnostic imaging of other specified body structures Category: Medical Plan: Results of CT chest from May of 2025 reviewed, not stable previously mentioned pulmonary nodules and new bibasilar peribronchovascular ground-glass infiltrates present pulmonary edema and/or infectious/inflammatory infiltrates. Will repeat CT chest in 6 months. Orders: Orders CT chest wo IV con 01/03/26 R91.8 - Other nonspecific abnormal finding of lung field Coding Level of Care Code Est Pt Level 3 (82978) Diagnoses Abnormal CT scan, chest R93.89
[2025-07-12 15:18] VITALS: BP 118/62; PULSE 75; O2SAT 96; BMI 32.4
== END 2025-07-12 15:58 | disposition home or self-care (01) ==
PROVIDERS: PCP Internal Medicine; Visit Provider Internal Medicine Pulmonary Disease
DX: R93.89 Abnormal findings on diagnostic imaging of other specified body structures (principal)
CPT/HCPCS: 99213

== ENCOUNTER → 2025-07-12 15:13 | Outpatient (BNVA) | payer MEDICARE, OTHER, SELFPAY | PROVIDERS: PCP Internal Medicine; Visit Provider Internal Medicine Pulmonary Disease | DX: R93.89 Abnormal findings on diagnostic imaging of other specified body structures (principal); R91.8 Other nonspecific abnormal finding of lung field; Z87.891 Personal history of nicotine dependence | CPT/HCPCS: 99212 ==